=== PATIENT | female | born 1970 | race Asian ===

== ENCOUNTER 2017-09-01 12:40 | Emergency (ER) | payer MEDICAID ==
[2017-09-01] MEDS ORDERED: TORADOL IM ONE (15:00)
[2017-09-01 15:27] LABS: Basophils % (Auto) 1.5 % (0.0-1.8); Eosinophils % (Auto) 1.2 % (0.0-4.3); Hematocrit 28.9 % (30.3-42.9); Hemoglobin 8.8 gm/dl (10.1-14.3); Mean Corpuscular HGB Conc 31 % (30-34); Platelet Count 459 K/mm3 (140-440); Red Blood Count 4.61 M/mm3 (3.65-5.03); Red Cell Distribution Width 19.9 % (13.2-15.2); White Blood Count 5.1 K/mm3 (4.5-11.0)
[2017-09-01 15:30] LABS: Mean Corpuscular Hemoglobin 19 pg (28-32); Mean Corpuscular Volume 63 fl (79-97)
--- NOTE | 2017-09-01 15:34 | Cat Scan Report ---
CT HEAD WITHOUT CONTRAST INDICATION: Headache. COMPARISON: None similar at this institution. FINDINGS: Noncontrast head CT demonstrates normal ventricles and sulci without acute or recent infarct, hemorrhage, mass effect or midline shift. No abnormal extra-axial fluid collections. Posterior fossa structures and basilar cisterns are within normal limits. Symmetric eye globes. Slight leftward nasal septal bowing. Clear paranasal sinuses and mastoid air cells. Intact calvarium. Normal overlying scalp soft tissues. Few missing teeth. CONCLUSION: No acute intracranial CT abnormality, as described. Thank you for the opportunity to participate in this patient's care.
[2017-09-01 15:39] LABS: Alanine Aminotransferase 16 units/L (7-56); Albumin 4.3 g/dL (3.9-5); Alkaline Phosphatase 64 units/L (35-129); Anion Gap 20 mmol/L; BUN/Creatinine Ratio 14; Blood Urea Nitrogen 11 mg/dL (7-17); Calcium 8.9 mg/dL (8.4-10.2); Carbon Dioxide 25 mmol/L (22-30); Glucose 84 mg/dL (65-100); Potassium 3.6 mmol/L (3.6-5.0); Sodium 140 mmol/L (137-145); Total Protein 8.8 g/dL (6.3-8.2)
[2017-09-01] MEDS ORDERED: NORVASC PO ONE (16:38)
[2017-09-01] MEDS ORDERED: HCTZ PO ONE (16:38)
--- NOTE | 2017-09-01 16:49 | Emergency Department Report ---
ED General Adult HPI - General Chief complaint: High BP Stated complaint: ELEVATED BLOOD PRESSURE Time Seen by Provider: 09/01/17 14:59 Source: patient Mode of arrival: Ambulatory Limitations: No Limitations - History of Present Illness Initial comments: Patient is a 46-year-old female with history of hypertension who presents due to elevated blood pressure. Patient states that she went to her primary care doctor's office yesterday and had elevated blood pressure. Patient states that she was told to go to the ER, patient stated that she did not come yesterday for personal reasons. Patient states that she has a headache and has had one for a few days. Patient denies any chest pain or shortness of breath. Patient denies any numbness, tingling, facial weakness or droop. Patient denies any extremity weakness. Patient denies any dizziness. Patient denies any h/o CVA or CAD. Patient has h/o iron deficiency anemia due to heavy menses. Patient states that he PCP gave her a prescription for Norvasc and HCTZ. MD Complaint: ELEVATED BP Onset/Timin -: days(s) Severity scale (0 -10): 0 Consistency: intermittent Improves with: none Worsens with: none Associated Symptoms: denies other symptoms Treatments Prior to Arrival: none - Related Data Previous Rx's Medication Instructions Recorded Last Taken Type Ferrous Sulfate [Iron] 325 mg PO DAILY #30 tablet 09/01/17 Unknown Rx Allergies Allergy/AdvReac Type Severity Reaction Status Date / Time acetaminophen [From Percocet] AdvReac Hives Verified 09/01/17 13:22 oxycodone [From Percocet] AdvReac Hives Verified 09/01/17 13:22 ED Review of Systems ROS: Stated complaint: ELEVATED BLOOD PRESSURE Other details as noted in HPI Comment: All other systems reviewed and negative Constitutional: no symptoms reported. denies: chills, diaphoresis, fever, malaise, weakness Eyes: denies: eye pain, eye discharge, vision change ENT: denies: ear pain, throat pain Respiratory: no symptoms reported. denies: cough, orthopnea Cardiovascular: denies: chest pain, palpitations, dyspnea on exertion, orthopnea , edema, syncope, paroxysmal nocturnal dyspnea Gastrointestinal: denies: abdominal pain, nausea, vomiting, diarrhea, constipation Genitourinary: denies: urgency, dysuria, frequency, hematuria Musculoskeletal: denies: back pain, joint swelling, arthralgia Skin: denies: rash Neurological: headache. denies: weakness, numbness, paresthesias, confusion, abnormal gait, vertigo ED Past Medical Hx - Past Medical History Previous Medical History?: Yes Hx Hypertension: Yes - Surgical History Past Surgical History?: No - Social History Smoking Status: Never Smoker Substance Use Type: Alcohol - Medications Home Medications: Home Medications Medication Instructions Recorded Confirmed Last Taken Type Ferrous Sulfate [Iron] 325 mg PO DAILY #30 tablet 09/01/17 Unknown Rx ED Physical Exam - General Limitations: No Limitations General appearance: alert, in no apparent distress - Head Head exam: Present: atraumatic, normocephalic, normal inspection - Eye Eye exam: Present: normal appearance, PERRL, EOMI Pupils: Present: normal accommodation - Neck Neck exam: Present: normal inspection, full ROM. Absent: tenderness, meningismus - Respiratory Respiratory exam: Present: normal lung sounds bilaterally. Absent: respiratory distress, wheezes, rales, rhonchi, stridor - Cardiovascular Cardiovascular Exam: Present: regular rate, normal rhythm, normal heart sounds - Neurological Exam Neurological exam: Present: alert, oriented X3, normal gait. Absent: abnormal gait, motor sensory deficit - Psychiatric Psychiatric exam: Present: normal affect, normal mood - Skin Skin exam: Present: warm, dry, intact ED Course Vital Signs 09/01/17 13:18 Temperature 98.7 F Pulse Rate 71 Respiratory 16 Rate Blood Pressure 195/96 O2 Sat by Pulse 99 Oximetry ED Medical Decision Making - Lab Data Result diagrams: 09/01/17 15:03 09/01/17 15:03 Lab Results 09/01/17 09/01/17 Range/Units 15:03 15:03 WBC 5.1 (4.5-11.0) K/mm3 RBC 4.61 (3.65-5.03) M/mm3 Hgb 8.8 L (10.1-14.3) gm/dl Hct 28.9 L (30.3-42.9) % MCV 63 L (79-97) fl MCH 19 L (28-32) pg MCHC 31 (30-34) % RDW 19.9 H (13.2-15.2) % Plt Count 459 H (140-440) K/mm3 Lymph % (Auto) 36.5 H (13.4-35.0) % Boundary % (Auto) 10.5 H (0.0-7.3) % Eos % (Auto) 1.2 (0.0-4.3) % Baso % (Auto) 1.5 (0.0-1.8) % Lymph # 1.9 (1.2-5.4) K/mm3 Boundary # 0.5 (0.0-0.8) K/mm3 Eos # 0.1 (0.0-0.4) K/mm3 Baso # 0.1 (0.0-0.1) K/mm3 Seg Neutrophils % 50.3 (40.0-70.0) % Seg Neutrophils # 2.6 (1.8-7.7) K/mm3 Sodium 140 (137-145) mmol/L Potassium 3.6 (3.6-5.0) mmol/L Chloride 99.0 (98-107) mmol/L Carbon Dioxide 25 (22-30) mmol/L Anion Gap 20 mmol/L BUN 11 (7-17) mg/dL Creatinine 0.8 (0.7-1.2) mg/dL Estimated GFR > 60 ml/min BUN/Creatinine Ratio 14 % Glucose 84 (65-100) mg/dL Calcium 8.9 (8.4-10.2) mg/dL Total Bilirubin 0.60 (0.1-1.2) mg/dL AST 25 (5-40) units/L ALT 16 (7-56) units/L Alkaline Phosphatase 64 (35-129) units/L Total Protein 8.8 H (6.3-8.2) g/dL Albumin 4.3 (3.9-5) g/dL Albumin/Globulin Ratio 1.0 % - Radiology Data Radiology results: report reviewed NO ACUTE INTRACRANIAL FINDINGS. - Medical Decision Making Patient was in NAD, patient had no neurological focal deficits, sensory function was intact, motor strength was 5 out of 5 in the upper and lower extremities. Patient had normal gait. EOM was intact. CBC and CMP were normal CT of head WO contrast was unremarkable. Patient was given Norvasc and HCTZ. Patient was precribed ferrous sulfate due to anemia. Patient states that she has h/o anemia due to heavy menses. patient was told to start taking her BP medication tomorrow and to follow up with her PCP. - Differential Diagnosis HTN, MIGRAINE HEADACHE, TENSION HEADACHE Critical care attestation.: If time is entered above; I have spent that time in minutes in the direct care of this critically ill patient, excluding procedure time. ED Disposition Clinical Impression: HTN (hypertension) Qualifiers: Hypertension type: essential hypertension Qualified Code(s): I10 - Essential ( primary) hypertension Headache Qualifiers: Headache type: unspecified Headache chronicity pattern: acute headache Intractability: not intractable Qualified Code(s): R51 - Headache Anemia Qualifiers: Anemia type: unspecified type Qualified Code(s): D64.9 - Anemia, unspecified Disposition: TO HOME OR SELFCARE Is pt being admited?: No Does the pt Need Aspirin: No Condition: Good Instructions: Hypertension (ED) Additional Instructions: take your HTN medications as prescribed by your Primary care doctor, return to the ER for any severe headache, facial numbness, weakness or facial droop. Return if you have any slurred speech or confusion. Return if you have any chest pain or SOB. Prescriptions: Ferrous Sulfate [Iron] 325 mg PO DAILY #30 tablet Referrals: [facility] [Other] - 3-5 Days Time of Disposition: 16:49
[2017-09-01 17:04] VITALS: BP 191/99
== END 2017-09-01 17:04 | disposition home or self-care (01) ==
LOC: ED 12:40
DX: I10 Essential (primary) hypertension (principal); R51 Headache; D64.9 Anemia, unspecified; Z88.6 Allergy status to analgesic agent
CPT/HCPCS: 36415; 70450; 80053; 85025; 96372; 99284; J1885

== ENCOUNTER 2018-11-25 09:33 | Emergency (ER) | payer MEDICAID, OTHER ==
[2018-11-25] MEDS ORDERED: HCTZ PO ONE (10:31)
[2018-11-25] MEDS ORDERED: NORVASC PO ONE (10:31)
--- NOTE | 2018-11-25 10:33 | Emergency Department Report ---
ED General Adult HPI - General Chief complaint: High BP Stated complaint: HIGH BP Time Seen by Provider: 11/25/18 10:17 Source: patient Mode of arrival: Ambulatory Limitations: No Limitations - History of Present Illness Initial comments: a 48-year-old -[place] female who presents for blood pressure medication refills and intermittent sore throat. Patient states she has been off her Norvasc and hydrochlorothiazide. 4-5 months. She also complains of intermittent sore throat which is currently resolved. Patient states she tried to get refills [facility] but was told they do not service [facility]. She is asking for referrals to a PCP who assist patients without insurance. She denies chest pain, shortness of breath, lightheadedness, nausea or vomiting, drooling, difficulty swallowing, myalgias, or fever. Onset/Timin -: month(s) Radiation: non-radiation Severity scale (0 -10): 0 Quality: aching Consistency: now resolved Improves with: none Worsens with: none Associated Symptoms: denies other symptoms Treatments Prior to Arrival: NSAID - Related Data Previous Rx's Medication Instructions Recorded Last Taken Type Ferrous Sulfate [Iron] 325 mg PO DAILY #30 tablet 09/01/17 Unknown Rx Amlodipine Besylate [Norvasc] 10 mg PO DAILY #30 tablet 11/25/18 Unknown Rx hydroCHLOROthiazide [HCTZ] 25 mg PO QDAY #30 tablet 11/25/18 Unknown Rx Allergies Allergy/AdvReac Type Severity Reaction Status Date / Time acetaminophen [From Percocet] AdvReac Hives Verified 09/01/17 13:22 oxycodone [From Percocet] AdvReac Hives Verified 09/01/17 13:22 ED Review of Systems ROS: Stated complaint: HIGH BP Other details as noted in HPI Constitutional: denies: chills, fever ENT: throat pain. denies: ear pain, dental pain, hearing loss, epistaxis, congestion Respiratory: denies: cough, shortness of breath, wheezing Cardiovascular: denies: chest pain, palpitations Gastrointestinal: denies: abdominal pain, nausea, diarrhea Neurological: denies: headache, weakness, paresthesias Psychiatric: denies: anxiety, depression ED Past Medical Hx - Past Medical History Hx Hypertension: Yes - Surgical History Past Surgical History?: No - Social History Smoking Status: Never Smoker Substance Use Type: None - Medications Home Medications: Home Medications Medication Instructions Recorded Confirmed Last Taken Type Ferrous Sulfate [Iron] 325 mg PO DAILY #30 tablet 09/01/17 Unknown Rx Amlodipine Besylate [Norvasc] 10 mg PO DAILY #30 tablet 11/25/18 Unknown Rx hydroCHLOROthiazide [HCTZ] 25 mg PO QDAY #30 tablet 11/25/18 Unknown Rx ED Physical Exam - General Limitations: No Limitations General appearance: alert, in no apparent distress, obese - ENT ENT exam: Present: normal orophraynx, mucous membranes moist, TM's normal bilaterally, normal external ear exam - Neck Neck exam: Present: normal inspection. Absent: lymphadenopathy - Respiratory Respiratory exam: Present: normal lung sounds bilaterally. Absent: respiratory distress - Cardiovascular Cardiovascular Exam: Present: regular rate, normal rhythm. Absent: systolic murmur, diastolic murmur, rubs, gallop - GI/Abdominal GI/Abdominal exam: Present: soft, normal bowel sounds. Absent: distended, tenderness, guarding, rebound, rigid, organomegaly, mass - Neurological Exam Neurological exam: Present: alert, oriented X3 - Psychiatric Psychiatric exam: Present: normal affect, normal mood - Skin Skin exam: Present: warm, dry, intact, normal color. Absent: rash ED Course Vital Signs 11/25/18 11/25/18 11/25/18 09:41 10:57 11:52 Temperature 98.0 F Pulse Rate 79 75 74 Respiratory 20 Rate Blood Pressure 207/86 200/81 Blood Pressure 191/82 [Left] O2 Sat by Pulse 97 Oximetry ED Medical Decision Making - Medical Decision Making This is a 48 y.o. female that presents medication refills and complained of intermittent sore throat. History of HTN. Patient off Norvasc 10 mg by mouth daily and hydrochlorothiazide 25 mg by mouth daily for 4-5 months. Patient is stable and was examined by me. Given Norvasc 25 mg po, HCTZ and mg po once in ER. Will reevaluate blood pressure prior to discharge. Start Norvasc 25 mg by mouth daily and hydrochlorothiazide 25 mg by mouth daily. Reevaluate her vitals prior to discharge, blood pressure trended down. Referral to [facility] for continued care. Discussed plan with patient and agreed to plan. No further questions noted by the patient. Discharged home in stable condition. Follow up with PCP in 1 week. Critical care attestation.: If time is entered above; I have spent that time in minutes in the direct care of this critically ill patient, excluding procedure time. ED Disposition Clinical Impression: Asymptomatic hypertension, Sore throat (viral) Hypertension Qualifiers: Hypertension type: essential hypertension Qualified Code(s): I10 - Essential (primary) hypertension Disposition: TO HOME OR SELFCARE Is pt being admited?: No Does the pt Need Aspirin: No Condition: Stable Instructions: Hypertension (ED), Upper Respiratory Infection (ED) Additional Instructions: Moderate caffeine consumption is acceptable. Begin and maintain aerobic exercise, with a goal of at least 30 minutes of moderate intensity, dynamic aerobic exercise (walking, jogging, cycling, or swimming) 5 days per week to total 150 minutes as tolerated or recommended by a physician. Take medication daily as prescribed. Increase fluid intake and rest. Wash hands frequently. Continue taking Tylenol or ibuprofen to control fever. Follow up with Primary Care Provider in 1 week for continued care of hypertens ion. Return to ER if fever, SOB, or difficulty breathing after 48 hours of supportive care. Prescriptions: Amlodipine Besylate [Norvasc] 10 mg PO DAILY #30 tablet hydroCHLOROthiazide [HCTZ] 25 mg PO QDAY #30 tablet Referrals: [facility] [Outside] - 3-5 Days [facility] [Outside] - 3-[address] [facility] [Outside] - 3-5 Days Forms: Work/School Release Form(ED) Time of Disposition: 12:18
[2018-11-25 12:31] VITALS: BP 186/82
== END 2018-11-25 12:30 | disposition home or self-care (01) ==
LOC: ED 09:33
DX: J02.9 Acute pharyngitis, unspecified (principal); I10 Essential (primary) hypertension
CPT/HCPCS: 99282

== ENCOUNTER 2019-06-02 16:04 | Observation (INO) | payer OTHER ==
--- NOTE | 2019-06-02 16:40 | Event Note ---
ED Screening Note ED Screening Note: pt presents with generalized weakness and fatigue for several months denies any pain LNMP end of April PMHx anemia and HTN has not taken her iron pill or blood pressure medication in 4 months never had to have a blood transfusion in the past This initial assessment/diagnostic orders/clinical plan/treatment(s) is/are subject to change based on patients health status, clinical progression and re- assessment by fellow clinical providers in the ED. Further treatment and workup at subsequent clinical providers discretion. Patient/guardian urged not to elope from the ED as their condition may be serious if not clinically assessed and managed. Initial orders include: labs, UA, urine preg
[2019-06-02 17:16] LABS: Basophils % (Auto) 0.6 % (0.0-1.8); Eosinophils % (Auto) 0.3 % (0.0-4.3); Hematocrit 20.6 % (30.3-42.9); Lymphocytes # (Auto) 1.3 K/mm3 (1.2-5.4); Mean Corpuscular HGB Conc 29 % (30-34); Monocytes # (Auto) 0.5 K/mm3 (0.0-0.8); Monocytes % (Auto) 12.2 % (0.0-7.3); Platelet Count 316 K/mm3 (140-440); Red Blood Count 3.72 M/mm3 (3.65-5.03)
[2019-06-02 17:17] LABS: Hemoglobin 5.9 gm/dl (10.1-14.3)
[2019-06-02 17:18] LABS: Mean Corpuscular Volume 55 fl (79-97); Red Cell Distribution Width 20.7 % (13.2-15.2)
[2019-06-02 17:25] LABS: Alanine Aminotransferase 7 units/L (7-56); Albumin 4.1 g/dL (3.9-5); BUN/Creatinine Ratio 9; Blood Urea Nitrogen 8 mg/dL (7-17); Calcium 8.9 mg/dL (8.4-10.2); Hemolysis Index 0
[2019-06-02 17:36] LABS: HCG Qualitative,Urine Negative (Negative)
[2019-06-02 17:39] LABS: Bacteria,Urine 4+ /HPF (Negative); Bilirubin,Urine NEG (Negative); Blood,Urine NEG (Negative); Color,Urine Amber (Yellow); Mucus,Urine 3+ /HPF; Urobilinogen,Urine < 2.0 mg/dL (<2.0)
[2019-06-02] MEDS ORDERED: NACL 0.9% 500 ML 500 ML IV ONE ×2 (17:49→22:07)
[2019-06-02] MEDS ORDERED: APRESOLINE IV ONE ×2 (17:49→19:24)
[2019-06-02] MEDS ORDERED: ROCEPHIN/NS 1 GM/50 ML 1 GM/50 ML BAG IV ONE (18:15)
--- NOTE | 2019-06-02 18:24 | Emergency Department Report ---
HPI - General Chief Complaint: Weakness Time Seen by Provider: 06/02/19 16:38 - HPI HPI: 48-year-old -[place] female presents to the emergency department from home with complaint of some generalized weakness and fatigue has been going on for the past few months. The patient says that she knows that she has a history of anemia but has never required transfusions. She also has a history of hypertension and has not taken her Norvasc or hydrochlorothiazide in the last month. 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 When asked if the patient is bleeding, the patient denies any current bleeding but says that she has heavy menstrual cycles that are most likely the cause of her anemia. She has known fibroids. She says that her menstrual cycle last for about 6 days with 3-4 of them being very heavy leading. She is due for her next menstrual cycle at the end of the month. ED Past Medical Hx - Past Medical History Previous Medical History?: Yes Hx Hypertension: Yes Additional medical history: anemia - Social History Smoking Status: Never Smoker Substance Use Type: None - Medications Home Medications: Home Medications Medication Instructions Recorded Confirmed Last Taken Type Amoxicillin/Potassium Clav 1 each PO BID #6 tablet 06/03/19 Unknown Rx [Augmentin 875-125 Tablet] Ferrous Sulfate [Feosol 325 MG tab] 325 mg PO BID #60 tablet 06/03/19 Unknown Rx amLODIPine [Norvasc] 10 mg PO DAILY #30 tablet 06/03/19 Unknown Rx hydroCHLOROthiazide [HCTZ] 25 mg PO QDAY #30 tablet 06/03/19 Unknown Rx ED Review of Systems ROS: Stated complaint: VERY FATIQUE/WEAK Other details as noted in HPI Comment: All other systems reviewed and negative Constitutional: weakness, other (fatigue). denies: chills, fever Eyes: denies: eye pain, vision change ENT: denies: ear pain, throat pain Respiratory: denies: cough, wheezing Cardiovascular: denies: chest pain, palpitations Gastrointestinal: denies: abdominal pain, vomiting Genitourinary: abnormal menses. denies: dysuria, frequency Musculoskeletal: denies: back pain, arthralgia Skin: denies: rash, lesions Neurological: denies: headache, numbness Physical Exam - Physical Exam Vital Signs: Vital Signs 06/02/19 16:39 Temperature 98.4 F Pulse Rate 91 H Respiratory 18 Rate Blood Pressure 186/102 [Right] O2 Sat by Pulse 100 Oximetry Physical Exam: GENERAL: The patient is well-developed well-nourished. HENT: Normocephalic. Atraumatic. Patient has moist mucous membranes. EYES: Extraocular motions are intact. Pupils equal reactive to light bilaterally. Pale conjunctiva NECK: Supple. Trachea is midline. CHEST/LUNGS: Clear to auscultation. There is no respiratory distress noted. HEART/CARDIOVASCULAR: Regular. There is no tachycardia. There is no murmur. ABDOMEN: Abdomen is soft, nontender. Patient has normal bowel sounds. There is no abdominal distention. SKIN: Skin is warm and dry. NEURO: The patient is awake, alert, and oriented. The patient is cooperative. The patient has no focal neurologic deficits. The patient has normal speech. MUSCULOSKELETAL: There is no tenderness or deformity. There is no evidence of acute injury. ED Course Vital Signs 06/02/19 16:39 Temperature 98.4 F Pulse Rate 91 H Respiratory 18 Rate Blood Pressure 186/102 [Right] O2 Sat by Pulse 100 Oximetry ED Medical Decision Making - Lab Data Result diagrams: 06/03/19 09:06 06/03/19 09:06 - Medical Decision Making This patient presents to the emergency department with the feelings of some generalized weakness and fatigue. Patient has a history of anemia but has never required a transfusion. Hemoglobin today was 5.9. This is most likely the etiology of her symptoms. The patient has history of heavy menstrual cycles but is not currently having any bleeding. 2 units of packed blood cells and ordered for transfusion. Since it is a DIGITAL PROJECT MANAGER problem causing the anemia, I have contacted the DIGITAL PROJECT MANAGER service on-call and they have graciously accepted the patient to their service. The patient does present with some elevated blood pressure. She has a history of hypertension and medication noncompliance. However she denies any headache, chest pain, shortness of breath. She has been given a few doses of antihypertensive medication to try to get the blood pressure down, as she will receive a transfusion. In reviewing the patient's hospital course, it appears that the patient end up being admitted to the hospitalist service with an WOOD PATTERNMAKER APPRENTICE consult instead of the other way around secondary to her hypertension. - Differential Diagnosis menorrhagia, fibroids, malignancy Critical Care Time: Yes Critical care time in (mins) excluding proc time.: 35 Critical care attestation.: If time is entered above; I have spent that time in minutes in the direct care of this critically ill patient, excluding procedure time. Critical care time was spent on this patient and doing her initial evaluation, multiple re- evaluations, ordering an interpretation of labs and imaging, ordering of blood for transfusion Critical Care Time: 35 minutes ED Disposition Clinical Impression: Menorrhagia with regular cycle, Microcytic anemia, Symptomatic anemia, Hypertension Disposition: DC-09 OP ADMIT IP TO THIS HOSP Is pt being admited?: Yes Condition: Fair
[2019-06-02] MEDS ORDERED: NORMODYNE IV ONE ×2 (19:44→20:02)
[2019-06-02] MEDS ORDERED: MORPHINE IV ONE (19:53)
[2019-06-02] MEDS ORDERED: MORPHINE ONE (20:01)
--- NOTE | 2019-06-02 21:09 | Consultation ---
Medications and Allergies Allergies Allergy/AdvReac Type Severity Reaction Status Date / Time acetaminophen [From Percocet] AdvReac Hives Verified 06/02/19 16:05 oxycodone [From Percocet] AdvReac Hives Verified 06/02/19 16:05 Home Medications Medication Instructions Recorded Confirmed Last Taken Type Ferrous Sulfate [Iron 325 MG] 325 mg PO DAILY #30 tablet 09/01/17 Unknown Rx Amlodipine Besylate [Norvasc] 10 mg PO DAILY #30 tablet 11/25/18 Unknown Rx hydroCHLOROthiazide [HCTZ] 25 mg PO QDAY #30 tablet 11/25/18 Unknown Rx Exam - Constitutional Vitals: Temp Pulse Resp BP Pulse Ox 98.4 F 82 9 L 179/82 100 06/02/19 16:39 06/02/19 20:02 06/02/19 19:15 06/02/19 20:02 06/02/19 19:15 Results - Labs CBC & Chem 7: 06/02/19 16:54 06/02/19 16:54 Labs: Abnormal lab results 06/02/19 06/02/19 06/02/19 Range/Units 16:54 16:54 17:06 WBC 3.7 L (4.5-11.0) K/mm3 Hgb 5.9 L* (10.1-14.3) gm/dl Hct 20.6 L (30.3-42.9) % MCV 55 L (79-97) fl MCH 16 L (28-32) pg MCHC 29 L (30-34) % RDW 20.7 H (13.2-15.2) % [place] % (Auto) 12.2 H (0.0-7.3) % Chloride 107.3 H (98-107) mmol/L Total Protein 8.9 H (6.3-8.2) g/dL Urine WBC (Auto) 38.0 H (0.0-6.0) /HPF U Epithel Cells (Auto) 20.0 H (0-13.0) /HPF Crossmatch 06/02/19 Range/Units 18:10 WBC (4.5-11.0) K/mm3 Hgb (10.1-14.3) gm/dl Hct (30.3-42.9) % MCV (79-97) fl MCH (28-32) pg MCHC (30-34) % RDW (13.2-15.2) % [place] % (Auto) (0.0-7.3) % Chloride (98-107) mmol/L Total Protein (6.3-8.2) g/dL Urine WBC (Auto) (0.0-6.0) /HPF U Epithel Cells (Auto) (0-13.0) /HPF Crossmatch See Detail
[2019-06-02] MEDS ORDERED: APRESOLINE IV PRN (21:10)
[2019-06-02] MEDS ORDERED: ZOFRAN IV PRN ×2 (21:29→22:01)
[2019-06-02] MEDS ORDERED: SODIUM CHLORIDE FLUSH SYRINGE 10 ML IV PRN ×2 (21:29→22:01)
[2019-06-02] MEDS ORDERED: NACL 0.9% 500 ML 500 ML ONE (21:56)
--- NOTE | 2019-06-02 21:59 | History and Physical Report ---
History of Present Illness Date of admission: 06/02/19 18:24 Chief complaint: Im bleeding real heavy History of present illness: 48 YO Female with HTN, Obesity, Menorrhagia, Uterine Fibroids, Anemia presents to ED for evaluation. Pt states that she has experienced generalized weakness, early fatigue, decreased exercise tolerance. Pt reports that her menstrual cycle is regular and lasts for about 6 days and she uses multiple pads for her bleeding. Pt transported to [facility] via private vehicle. Pt seen and evaluated in ED and found to have symptomatic anemia, UTI, Hypertensive Urgency. Pt restarted on prehospital antihypertensive therapy with improvement in SBP. Pt transfused PRBC and admitted to medical floor. SERVICE DELIVERY MANAGEMENT CONSULTANT service consulted by ED physician. Pt denies fever, chills, CP, Palpitations, NVD, Abdominal pain, unintentional weight loss, night seats, productive cough, skin rash, or recent ill contacts. No prior admission for review. All listed medication reconciled at time of adm ission. Past History Past Medical History: anemia, hypertension, other (Obesity) Past Surgical History: Other (breast surgery) Social history: single. denies: smoking, alcohol abuse, prescription drug abuse Family history: hypertension Medications and Allergies Allergies Allergy/AdvReac Type Severity Reaction Status Date / Time acetaminophen [From Percocet] AdvReac Hives Verified 06/02/19 16:05 oxycodone [From Percocet] AdvReac Hives Verified 06/02/19 16:05 Home Medications Medication Instructions Recorded Confirmed Last Taken Type No Known Home Medications [No 06/02/19 06/02/19 Unknown History Reported Home Medications] Active Meds: Active Medications Hydralazine HCl (Apresoline) 10 mg IV Q6H PRN PRN Reason: Hypertension Ondansetron HCl (Zofran) 4 mg IV Q8H PRN PRN Reason: Nausea And Vomiting Sodium Chloride (Sodium Chloride Flush Syringe 10 Ml) 10 ml IV PRN PRN PRN Reason: LINE FLUSH Review of Systems Constitutional: fatigue, weakness, no weight loss, no weight gain, no fever Ears, nose, mouth and throat: no ear pain, no ear discharge, no tinnitis, no decreased hearing, no nose pain Breasts: no change in shape, no swelling, no mass Cardiovascular: no chest pain, no orthopnea Respiratory: no cough, no cough with sputum, no excessive sputum, no hemoptysis, no shortness of breath, no dyspnea on exertion Gastrointestinal: no abdominal pain, no nausea, no vomiting, no constipation, no change in bowel habits, no hematemesis Genitourinary Female: menorrhagia, no pelvic pain, no flank pain, no dysuria, no urinary frequency, no urgency, no stress incontinence Rectal: no pain, no incontinence, no bleeding Musculoskeletal: no neck stiffness, no neck pain, no shooting arm pain, no arm numbness/tingling, no low back pain, no shooting leg pain Integumentary: no rash, no pruritis, no redness, no sores, no wounds Neurological: no head injury, no transient paralysis, no paralysis, no weakness, no parathesias, no numbness, no seizures, no tremors, no convulsions, no change in mentation Psychiatric: no anxiety, no memory loss, no change in sleep habits, no paranoia, no hopelessness, no difficulties concentrating Endocrine: no cold intolerance, no heat intolerance, no polyphagia, no excessive thirst, no polydipsia, no nocturia, no deepening of the voice, no palpatations, no low blood sugars Hematologic/Lymphatic: no easy bruising, no easy bleeding, no lymphadenopathy Allergic/Immunologic: no urticaria, no wheezing, no persistent infections, no anaphylaxis, no angioedema, no gluten intolerance, no seasonal allergies Exam - Constitutional Vitals: Temp Pulse Resp BP Pulse Ox 98.4 F 82 9 L 179/82 100 06/02/19 16:39 06/02/19 20:02 06/02/19 19:15 06/02/19 20:02 06/02/19 19:15 General appearance: Present: mild distress - EENT Eyes: Present: PERRL ENT: hearing intact, clear oral mucosa - Neck Neck: Present: supple, normal ROM - Respiratory Respiratory effort: normal Respiratory: bilateral: CTA - Cardiovascular Heart Sounds: Present: S1 & S2. Absent: rub, click - Extremities Extremities: pulses symmetrical, No edema Peripheral Pulses: within normal limits - Abdominal General gastrointestinal: Present: soft, non-tender, non-distended, normal bowel sounds Female genitourinary: Present: normal - Integumentary Integumentary: Present: clear, warm, dry - Musculoskeletal Musculoskeletal: gait normal, strength equal bilaterally - Psychiatric Psychiatric: appropriate mood/affect, intact judgment & insight - Neurologic Neurologic: CNII-XII intact, moves all extremities Results - Labs CBC & Chem 7: 06/02/19 16:54 06/02/19 16:54 Labs: Abnormal lab results 06/02/19 06/02/19 06/02/19 Range/Units 16:54 16:54 17:06 WBC 3.7 L (4.5-11.0) K/mm3 Hgb 5.9 L* (10.1-14.3) gm/dl Hct 20.6 L (30.3-42.9) % MCV 55 L (79-97) fl MCH 16 L (28-32) pg MCHC 29 L (30-34) % RDW 20.7 H (13.2-15.2) % [place] % (Auto) 12.2 H (0.0-7.3) % Chloride 107.3 H (98-107) mmol/L Total Protein 8.9 H (6.3-8.2) g/dL Urine WBC (Auto) 38.0 H (0.0-6.0) /HPF U Epithel Cells (Auto) 20.0 H (0-13.0) /HPF Crossmatch 06/02/19 Range/Units 18:10 WBC (4.5-11.0) K/mm3 Hgb (10.1-14.3) gm/dl Hct (30.3-42.9) % MCV (79-97) fl MCH (28-32) pg MCHC (30-34) % RDW (13.2-15.2) % [place] % (Auto) (0.0-7.3) % Chloride (98-107) mmol/L Total Protein (6.3-8.2) g/dL Urine WBC (Auto) (0.0-6.0) /HPF U Epithel Cells (Auto) (0-13.0) /HPF Crossmatch See Detail Assessment and Plan - Patient Problems (1) UTI (urinary tract infection) Current Visit: Yes Status: Acute Qualifiers: Encounter type: initial encounter Plan to address problem: IV antibiotic therapy, urinalysis, CBC, CMP, supportive care. (2) Symptomatic anemia Current Visit: Yes Status: Acute Plan to address problem: PRBC Transfusion, Iron replacement therapy, bowel regimen, SERVICE DELIVERY MANAGEMENT CONSULTANT F/U care (3) Hypertensive urgency, malignant Current Visit: Yes Status: Acute Plan to address problem: Monitor BP q shift, continue prehospital antihypertensive therapy, supportive care. IV hydralazine prn (4) DVT prophylaxis Current Visit: Yes Status: Acute Plan to address problem: SCD to BLE while in bed, Pt ambulatory
[2019-06-02] MEDS ORDERED: PROVENTIL IH PRN (22:01)
[2019-06-02] MEDS ORDERED: TYLENOL PO PRN (22:01)
[2019-06-02] MEDS ORDERED: SENOKOT S PO PRN (22:04)
[2019-06-02] MEDS ORDERED: FIORICET PO PRN (22:06)
--- NOTE | 2019-06-02 23:07 | Consultation ---
History of Present Illness Consult date: 06/02/19 Reason for consult: menorrhagia, pelvic mass (fibroids) History of present illness: This is a 48 year-old female, who presents with fatigue, weakness, SOB. She was noted to have a hemoglobin of 5.9 with a history of menorrhagia. States she started having heavy menstrual bleeding ~ 1-2 years ago. Heavy bleeding occurs 6/12 months. She typical bleeds heavy 3/6days. She usually saturates ~5-6pads a day. She was diagnosed with fibroids and anemia by her PCP and instructed to start FeSO4. LMP 05/20/2019, no bleeding now. Past History Past Medical History: hypertension Past Surgical History: other (BTL; excision of hidradenitis breast) [facility] History: abnormal PAP smear, fibroids, gonorrhea, hepatitis B, hepatitis C, herpes, HIV, syphilis, trichomonas. denies: chlamydia - Obstetrical History : 3 Para: 4 Number of Living Children: 4 ( x4) Medications and Allergies Allergies Allergy/AdvReac Type Severity Reaction Status Date / Time acetaminophen [From Percocet] AdvReac Hives Verified 06/02/19 16:05 oxycodone [From Percocet] AdvReac Hives Verified 06/02/19 16:05 Home Medications Medication Instructions Recorded Confirmed Last Taken Type No Known Home Medications [No 06/02/19 06/02/19 Unknown History Reported Home Medications] Active Meds: Active Medications Acetaminophen (Tylenol) 650 mg PO Q4H PRN PRN Reason: Pain MILD(1-3)/Fever >100.5/[place] Acetaminophen/Butalbital/Caffeine (Fioricet) 1 tab PO Q4H PRN PRN Reason: Headache Albuterol (Proventil) 2.5 mg IH Q4HRT PRN PRN Reason: Shortness Of Breath Amlodipine Besylate (Norvasc) 10 mg PO DAILY TEE Ferrous Sulfate (Feosol) 325 mg PO BID TEE Hydralazine HCl (Apresoline) 10 mg IV Q6H PRN PRN Reason: Hypertension Hydrochlorothiazide (Hctz) 25 mg PO QDAY TEE Ceftriaxone Sodium (Rocephin/Ns 1 Gm/50 Ml) 1 gm in 50 mls @ 100 mls/hr IV Q24HR TEE; Protocol Ondansetron HCl (Zofran) 4 mg IV Q8H PRN PRN Reason: Nausea And Vomiting Ondansetron HCl (Zofran) 4 mg IV Q8H PRN PRN Reason: Nausea And Vomiting Senna/Docusate Sodium (Senokot S) 2 tab PO Q12H PRN PRN Reason: Laxative Effect Sodium Chloride (Sodium Chloride Flush Syringe 10 Ml) 10 ml IV PRN PRN PRN Reason: LINE FLUSH Sodium Chloride (Sodium Chloride Flush Syringe 10 Ml) 10 ml IV BID TEE Sodium Chloride (Sodium Chloride Flush Syringe 10 Ml) 10 ml IV PRN PRN PRN Reason: LINE FLUSH Review of Systems All systems: negative Constitutional: fatigue, weakness - Vital Signs Vital signs: Vital Signs Temp Pulse Resp BP Pulse Ox 98.4 F 91 H 18 186/102 100 06/02/19 16:39 06/02/19 16:39 06/02/19 16:39 06/02/19 16:39 06/02/19 16:39 Temp Pulse Resp BP Pulse Ox 98.2 F 70 18 182/81 100 06/02/19 22:19 06/02/19 22:19 06/02/19 22:19 06/02/19 22:19 06/02/19 22:19 - Physical Exam Abdomen: Positive: other (mass (R) pelvis to ~2cm above umbilicus that corresponds to what she says is a fibroid) Results Result Diagrams: 06/02/19 16:54 06/02/19 16:54 Abnormal lab results 06/02/19 06/02/19 06/02/19 Range/Units 16:54 16:54 17:06 WBC 3.7 L (4.5-11.0) K/mm3 Hgb 5.9 L* (10.1-14.3) gm/dl Hct 20.6 L (30.3-42.9) % MCV 55 L (79-97) fl MCH 16 L (28-32) pg MCHC 29 L (30-34) % RDW 20.7 H (13.2-15.2) % [place] % (Auto) 12.2 H (0.0-7.3) % Chloride 107.3 H (98-107) mmol/L Total Protein 8.9 H (6.3-8.2) g/dL Urine WBC (Auto) 38.0 H (0.0-6.0) /HPF U Epithel Cells (Auto) 20.0 H (0-13.0) /HPF Crossmatch 06/02/19 Range/Units 18:10 WBC (4.5-11.0) K/mm3 Hgb (10.1-14.3) gm/dl Hct (30.3-42.9) % MCV (79-97) fl MCH (28-32) pg MCHC (30-34) % RDW (13.2-15.2) % [place] % (Auto) (0.0-7.3) % Chloride (98-107) mmol/L Total Protein (6.3-8.2) g/dL Urine WBC (Auto) (0.0-6.0) /HPF U Epithel Cells (Auto) (0-13.0) /HPF Crossmatch See Detail All other labs normal. Assessment and Plan - Patient Problems (1) Hypertension Current Visit: Yes Status: Acute (2) Menorrhagia with regular cycle Current Visit: Yes Status: Acute Plan to address problem: No bleeding at this time. She is encouraged to follow up with a [facility] as an outpatient to obtain a complete evaluation of the menorrhagia and fibroid. Agree with transfusion. Hold control pills for menstrual regulation d/t uncontr olled blood pressures. May consider Tranexamic acid if bleeding recurs until she completes her evaluation. Will sign off at this time since no active bleeding, please call if bleeding occurs. (3) Fibroids Current Visit: Yes Status: Acute (4) Microcytic anemia Current Visit: Yes Status: Acute
[2019-06-02] MEDS ORDERED: APRESOLINE ONE (23:21)
[2019-06-02] MEDS ORDERED: FIORICET ONE (23:21)
[2019-06-03] MEDS ORDERED: APRESOLINE IV PRN (01:31)
[2019-06-03] MEDS ORDERED: NORVASC PO SCH (10:00)
[2019-06-03] MEDS ORDERED: FEOSOL PO SCH (10:00)
[2019-06-03] MEDS ORDERED: SODIUM CHLORIDE FLUSH SYRINGE 10 ML IV SCH (10:00)
[2019-06-03] MEDS ORDERED: ROCEPHIN/NS 1 GM/50 ML 1 GM/50 ML BAG IV SCH (10:00)
[2019-06-03] MEDS ORDERED: HCTZ PO SCH (10:00)
[2019-06-03 10:24] LABS: BUN/Creatinine Ratio 9; Blood Urea Nitrogen 8 mg/dL (7-17); Calcium 9.8 mg/dL (8.4-10.2); Hemolysis Index 0
[2019-06-03 10:26] LABS: Hematocrit 32.6 % (30.3-42.9); Hemoglobin 10.2 gm/dl (10.1-14.3); Mean Corpuscular HGB Conc 31 % (30-34); Platelet Count 287 K/mm3 (140-440); Red Blood Count 5.19 M/mm3 (3.65-5.03)
[2019-06-03 10:50] LABS: Mean Corpuscular Volume 63 fl (79-97); Red Cell Distribution Width 30.4 % (13.2-15.2)
[2019-06-03 12:20] LABS: Anisocytosis 2+; Basophils % (Manual) 0 % (0.0-1.8); Eosinophils % (Manual) 0 % (0.0-4.3); Hypochromasia 2+; Platelet Estimate Consistent w Auto; Target Cells Few; Total Cells Counted 100
[2019-06-03 13:06] VITALS: BP 147/66
--- NOTE | 2019-06-03 15:39 | Discharge Summary ---
Providers - Providers Date of Admission: 06/02/19 18:24 Attending physician: ROSS AMADOR MD 06/02/19 21:29 Consult to Physician [CONS] Stat Comment: Consulting Provider: JAYE MENDOZA Physician Instructions: Reason For Exam: menorrhagia [facility] care physician: [facility] Hospitalization Condition: Fair Hospital course: 48 YO Female with HTN, Obesity, Menorrhagia, Uterine Fibroids, Anemia who presents with generalized weakness, heavy menstrual cycle that lasted 6 days. Acute blood loss anemia due to menorrhagia Patient has been transfused, with adequate rise in hemoglobin Iron deficiency, she was treated with iron supplements Urinary tract infection, rx w antibiotics menorrhagia with regular cycle Likely a complication of fibroids, per [employer] hold control pills due to uncontrolled htn, outpatient follow-up Disposition: DC- TO HOME OR SELFCARE Time spent for discharge: 35 minutes Core Measure Documentation - Palliative Care Palliative Care/ Comfort Measures: Not Applicable - Core Measures Any of the following diagnoses?: none Exam - Constitutional Vitals: Temp Pulse Resp BP Pulse Ox 99.0 F 77 16 147/66 98 06/03/19 11:28 06/03/19 11:28 06/03/19 11:28 06/03/19 11:28 06/03/19 11:28 General appearance: Present: no acute distress, well-nourished - EENT Eyes: Present: PERRL ENT: hearing intact, clear oral mucosa - Neck Neck: Present: supple, normal ROM - Respiratory Respiratory effort: normal Respiratory: bilateral: CTA - Cardiovascular Heart Sounds: Present: S1 & S2. Absent: rub, click - Extremities Extremities: pulses symmetrical, No edema Peripheral Pulses: within normal limits - Abdominal General gastrointestinal: Present: soft, non-tender, non-distended, normal bowel sounds Female genitourinary: Present: normal - Integumentary Integumentary: Present: clear, warm, dry - Musculoskeletal Musculoskeletal: gait normal, strength equal bilaterally - Psychiatric Psychiatric: appropriate mood/affect, intact judgment & insight - Neurologic Neurologic: CNII-XII intact, moves all extremities Plan Follow up with: JAYE MENDOZA MD [Staff Physician] - 7 Days WIMBLEDON RENATO BALL MD [Primary Care Provider] - 3-5 Days Prescriptions: Amoxicillin/Potassium Clav [Augmentin 875-125 Tablet] 1 each PO BID #6 tablet Ferrous Sulfate [Feosol 325 MG tab] 325 mg PO BID #60 tablet hydroCHLOROthiazide [HCTZ] 25 mg PO QDAY #30 tablet amLODIPine [Norvasc] 10 mg PO DAILY #30 tablet
--- NOTE | 2019-06-03 18:35 | Event Note ---
Date: 06/03/19 Received a notification thru [facility] stating "Patient planning suicide" Spoke with RN who states she was not aware of any suicidal ideations. Patient is discharged however is still in the facilities waiting for her ride home. Instructed to discuss this w/ patient and hospitalist prior to allowing the patient to go home.
== END 2019-06-03 18:31 | disposition home or self-care (01) ==
LOC: ED 16:04 → OB 18:24 → 3A 23:04
PROVIDERS: ADMIT Obstetrics & Gynecology; ATTEND Internal Medicine
DX: N39.0 Urinary tract infection, site not specified (principal); I16.0 Hypertensive urgency; E66.9 Obesity, unspecified; B19.20 Unspecified viral hepatitis C without hepatic coma; B20 Human immunodeficiency virus [HIV] disease; I10 Essential (primary) hypertension; N92.0 Excessive and frequent menstruation with regular cycle; D21.9 Benign neoplasm of connective and other soft tissue, unspecified; D50.9 Iron deficiency anemia, unspecified; Z98.890 Other specified postprocedural states
CPT/HCPCS: 36415; 36430; 80048; 80053; 81001; 81025; 83735; 84443; 85007; 85025; 86850; 86900; 86901; 86920; 87076; 87086; 87116; 87186; 93005; 93010; 96365; 96366; 96375; 96376; 99291; G0378; J0360; J0696; J2270; J2405; J7040; P9016

== ENCOUNTER 2019-07-16 13:59 | Emergency (ER) | payer SELFPAY ==
--- NOTE | 2019-07-16 14:05 | Event Note ---
ED Screening Note Date of service: 07/16/19 Time: 14:04 ED Screening Note: 48 y/o female c/o facial swelling since yesterday. It was noted that patient has elevated Blood pressure. Sore throat. This initial assessment/diagnostic orders/clinical plan/treatment(s) is/are subject to change based on patients health status, clinical progression and re- assessment by fellow clinical providers in the ED. Further treatment and workup at subsequent clinical providers discretion. Patient/guardian urged not to elope from the ED as their condition may be serious if not clinically assessed and managed. Initial orders include:
[2019-07-16] MEDS ORDERED: CLEOCIN PO ONE (16:10)
[2019-07-16] MEDS ORDERED: IBUPROFEN PO ONE (16:11)
--- NOTE | 2019-07-16 16:20 | Emergency Department Report ---
<JAKI BUCKLEY - Last Filed: 07/16/19 16:12> ED General Adult HPI - General Chief complaint: Dental/Oral Stated complaint: FACE SWOLLEN/PAINFUL Time Seen by Provider: 07/16/19 14:04 Source: patient Mode of arrival: Ambulatory Limitations: No Limitations - History of Present Illness Initial comments: This is a 48-year-old female with history of hypertension currently controlled with medication. Patient states she took her blood pressure medication daily and is followed by primary care physician. Patient presented today complaining of left-sided dental pain and swelling that started yesterday. Patient denies fevers chills/nausea vomiting trauma to the face. Patient also complaining of sore throat for the past day. Patient denies any fever, chest pain, headache, blurred vision - Related Data Previous Rx's Medication Instructions Recorded Last Taken Type Amoxicillin/Potassium Clav 1 each PO BID #6 tablet 06/03/19 Unknown Rx [Augmentin 875-125 Tablet] Ferrous Sulfate [Feosol 325 MG tab] 325 mg PO BID #60 tablet 06/03/19 Unknown Rx amLODIPine [Norvasc] 10 mg PO DAILY #30 tablet 06/03/19 Unknown Rx hydroCHLOROthiazide [HCTZ] 25 mg PO QDAY #30 tablet 06/03/19 Unknown Rx Clindamycin [Clindamycin CAP] 300 mg PO TID #21 capsule 07/16/19 Unknown Rx Ibuprofen [Motrin 800 MG tab] 800 mg PO TID #20 tablet 07/16/19 Unknown Rx Allergies Allergy/AdvReac Type Severity Reaction Status Date / Time acetaminophen [From Percocet] AdvReac Hives Verified 06/02/19 16:05 oxycodone [From Percocet] AdvReac Hives Verified 06/02/19 16:05 ED Review of Systems Comment: All other systems reviewed and negative ED Past Medical Hx - Past Medical History Previous Medical History?: Yes Hx Hypertension: Yes Additional medical history: anemia - Surgical History Past Surgical History?: No - Social History Smoking Status: Never Smoker Substance Use Type: None - Medications Home Medications: Home Medications Medication Instructions Recorded Confirmed Last Taken Type Amoxicillin/Potassium Clav 1 each PO BID #6 tablet 06/03/19 Unknown Rx [Augmentin 875-125 Tablet] Ferrous Sulfate [Feosol 325 MG tab] 325 mg PO BID #60 tablet 06/03/19 Unknown Rx amLODIPine [Norvasc] 10 mg PO DAILY #30 tablet 06/03/19 Unknown Rx hydroCHLOROthiazide [HCTZ] 25 mg PO QDAY #30 tablet 06/03/19 Unknown Rx Clindamycin [Clindamycin CAP] 300 mg PO TID #21 capsule 07/16/19 Unknown Rx Ibuprofen [Motrin 800 MG tab] 800 mg PO TID #20 tablet 07/16/19 Unknown Rx ED Physical Exam - General Limitations: No Limitations General appearance: alert, in no apparent distress - Head Head exam: Present: atraumatic, normocephalic - Eye Eye exam: Present: normal appearance - ENT ENT exam: Present: mucous membranes moist - Neck Neck exam: Present: normal inspection - Respiratory Respiratory exam: Present: normal lung sounds bilaterally. Absent: respiratory distress - Cardiovascular Cardiovascular Exam: Present: regular rate, normal rhythm. Absent: systolic murmur, diastolic murmur, rubs, gallop - GI/Abdominal GI/Abdominal exam: Present: soft, normal bowel sounds - Extremities Exam Extremities exam: Present: normal inspection - Back Exam Back exam: Present: normal inspection - Neurological Exam Neurological exam: Present: alert, oriented X3 - Psychiatric Psychiatric exam: Present: normal affect, normal mood - Skin Skin exam: Present: warm, dry, intact, normal color. Absent: rash ED Medical Decision Making - Medical Decision Making 48-year-old female who presents with left-sided Facial pain secondary to odontogenic caries ED course: Patient received a dose of clindamycin and Motrin in the ED Pt has no evidence of acute impending airway compromise. At this point, patient will be discharged home on some antibiotics and pain trial, she will do well with an outpatient course of antibiotics. Follow up with the Dental Clinic as referred Vital signs are normal patient is in no acute distress. Pt had an effect uneventful ED stay ED Disposition Clinical Impression: Pain due to dental caries Disposition: DC-01 TO HOME OR SELFCARE Is pt being admited?: No Does the pt Need Aspirin: No Condition: Stable Instructions: Dental Caries (ED), Toothache (ED) Additional Instructions: eMake sure to follow up with the dentist as discussed. Take all your medications as you've been prescribed. If you have any worsening symptoms or develop new symptoms please return to ED immediately. Prescriptions: Clindamycin [Clindamycin CAP] 300 mg PO TID #21 capsule Ibuprofen [Motrin 800 MG tab] 800 mg PO TID #20 tablet Referrals: PRIMARY CARE, [Primary Care Provider] - 3-5 Days [facility] [Outside] - 3-5 Days [facility] [Outside] - 3-5 Days Forms: Accompanied Note, Work/School Release Form(ED) Time of Disposition: 16:56 <FCO BURNETT P - Last Filed: 07/17/19 17:41> ED Review of Systems ROS: Stated complaint: FACE SWOLLEN/PAINFUL Other details as noted in HPI ED Course Vital Signs 07/16/19 07/16/19 14:05 17:09 Temperature 98.2 F Pulse Rate 72 63 Respiratory 16 20 Rate Blood Pressure 207/103 Blood Pressure 175/94 [Left] O2 Sat by Pulse 97 Oximetry Critical care attestation.: If time is entered above; I have spent that time in minutes in the direct care of this critically ill patient, excluding procedure time. ED Disposition Is pt being admited?: No
[2019-07-16 17:10] VITALS: BP 175/94
== END 2019-07-16 17:15 | disposition home or self-care (01) ==
LOC: ED 13:59
DX: K02.9 Dental caries, unspecified (principal); Z88.5 Allergy status to narcotic agent; Z88.6 Allergy status to analgesic agent; I10 Essential (primary) hypertension
CPT/HCPCS: 87116; 87430

== ENCOUNTER 2019-12-04 16:13 | Emergency (ER) | payer SELFPAY ==
--- NOTE | 2019-12-04 16:46 | Event Note ---
ED Screening Note ED Screening Note: vaginal itching dysuria discharge suprapubic discomfort no N/V no fever PMHx HTN, fibroids, anemia did not follow up with a PCP allergy; percocet LNMP: beginning of october This initial assessment/diagnostic orders/clinical plan/treatment(s) is/are subject to change based on patients health status, clinical progression and re- assessment by fellow clinical providers in the ED. Further treatment and workup at subsequent clinical providers discretion. Patient/guardian urged not to elope from the ED as their condition may be serious if not clinically assessed and managed. Initial orders include: ua, urine preg
[2019-12-04 18:57] LABS: Bilirubin,Urine NEG (Negative); Blood,Urine LG (Negative); Color,Urine Amber (Yellow); Mucus,Urine 3+ /HPF; Urobilinogen,Urine < 2.0 mg/dL (<2.0)
[2019-12-04 18:59] LABS: HCG Qualitative,Urine Negative (Negative)
[2019-12-04] MEDS ORDERED: IBUPROFEN 600 MG TAB PO ONE (19:42)
[2019-12-04] MEDS ORDERED: LIDOCAINE-MPF (1%) 10 MG/1 ML VIAL 5 ML INFILTRATI ONE (19:42)
[2019-12-04] MEDS ORDERED: PHENAZOPYRIDINE 200 MG TAB PO ONE (19:42)
[2019-12-04] MEDS ORDERED: LIDOCAINE MPF INFILTRATI ONE (20:00)
[2019-12-04] MEDS ORDERED: AZITHROMYCIN 250 MG TAB PO ONE (22:40)
--- NOTE | 2019-12-05 | Emergency Department Report ---
ED Female HPI - General Chief complaint: Urogenital-Female Stated complaint: VAGINAL PROBLEMS Time Seen by Provider: 12/04/19 16:44 Source: patient Mode of arrival: Ambulatory Limitations: No Limitations - History of Present Illness Initial comments: Patient is a 49-year-old -Omani female with no past medical history who presents to the ED with complaint of acute onset persistent vaginal pain and discomfort, vaginal irritation, vaginal discharge which is thick, yellowish green with malodorous smell, urinary frequency and urgency and dysuria for the last 1 week. Patient admits to having had an unprotected sexual intercourse in the last month, the last episode of which was over 1 week ago. Patient denies abdominal pain, fever, chills, vaginal bleeding, dizziness, chest pain or shortness of breath, low back pain, dyspareunia, diarrhea or nausea and vomiting. MD Complaint: vaginal discharge, dysuria, possible STD, other (vaginal pain and irritation) -: Sudden, week(s) (1) Location: other (VAGINAL) Radiation: non-radiating Severity: severe Severity scale (0 -10): 7 Quality: sharp, burning, aching Consistency: constant Improves with: none Worsens with: urination, intercourse Are you Now?: No Associated Symptoms: denies other symptoms, vaginal discharge, dysuria. denies: vaginal bleeding, abdominal pain, nausea/vomiting, fever/chills, headaches, loss of appetite, hematuria, rash, seizure, shortness of breath, syncope, weakness, other - Related Data Sexually active: Yes Previous Rx's Medication Instructions Recorded Last Taken Type Amoxicillin/Potassium Clav 1 each PO BID #6 tablet 06/03/19 Unknown Rx [Augmentin 875-125 Tablet] Ferrous Sulfate [Feosol 325 MG tab] 325 mg PO BID #60 tablet 06/03/19 Unknown Rx amLODIPine 10 mg PO DAILY #30 tablet 06/03/19 Unknown Rx hydroCHLOROthiazide [HCTZ] 25 mg PO QDAY #30 tablet 06/03/19 Unknown Rx Clindamycin [Clindamycin CAP] 300 mg PO TID #21 capsule 07/16/19 Unknown Rx Ibuprofen [Motrin 800 MG tab] 800 mg PO TID #20 tablet 07/16/19 Unknown Rx Fluconazole [Diflucan TAB] 150 mg PO ONCE #3 tablet 12/05/19 Unknown Rx Ibuprofen [Motrin] 800 mg PO Q8HR PRN #20 tablet 12/05/19 Unknown Rx cephALEXin [Keflex] 500 mg PO Q6HR #40 capsule 12/05/19 Unknown Rx metroNIDAZOLE [Flagyl] 500 mg PO Q12HR #20 tab 12/05/19 Unknown Rx Allergies Allergy/AdvReac Type Severity Reaction Status Date / Time acetaminophen [From Percocet] AdvReac Hives Verified 06/02/19 16:05 oxycodone [From Percocet] AdvReac Hives Verified 06/02/19 16:05 ED Review of Systems ROS: Stated complaint: VAGINAL PROBLEMS Other details as noted in HPI Constitutional: denies: chills, fever Eyes: denies: eye pain, eye discharge, vision change ENT: denies: ear pain, throat pain Respiratory: denies: cough, shortness of breath, wheezing Cardiovascular: denies: chest pain, palpitations Endocrine: no symptoms reported Gastrointestinal: denies: abdominal pain, nausea, diarrhea Genitourinary: urgency, dysuria, frequency, discharge, other (Vaginal pain and irritation) Musculoskeletal: denies: back pain, joint swelling, arthralgia Skin: denies: rash, lesions Neurological: denies: headache, weakness, paresthesias Psychiatric: denies: anxiety, depression Hematological/Lymphatic: denies: easy bleeding, easy bruising ED Past Medical Hx - Past Medical History Previous Medical History?: Yes Hx Hypertension: Yes Additional medical history: anemia - Surgical History Past Surgical History?: No - Social History Smoking Status: Never Smoker Substance Use Type: None - Medications Home Medications: Home Medications Medication Instructions Recorded Confirmed Last Taken Type Amoxicillin/Potassium Clav 1 each PO BID #6 tablet 06/03/19 Unknown Rx [Augmentin 875-125 Tablet] Ferrous Sulfate [Feosol 325 MG tab] 325 mg PO BID #60 tablet 06/03/19 Unknown Rx amLODIPine 10 mg PO DAILY #30 tablet 06/03/19 Unknown Rx hydroCHLOROthiazide [HCTZ] 25 mg PO QDAY #30 tablet 06/03/19 Unknown Rx Clindamycin [Clindamycin CAP] 300 mg PO TID #21 capsule 07/16/19 Unknown Rx Ibuprofen [Motrin 800 MG tab] 800 mg PO TID #20 tablet 07/16/19 Unknown Rx Fluconazole [Diflucan TAB] 150 mg PO ONCE #3 tablet 12/05/19 Unknown Rx Ibuprofen [Motrin] 800 mg PO Q8HR PRN #20 tablet 12/05/19 Unknown Rx cephALEXin [Keflex] 500 mg PO Q6HR #40 capsule 12/05/19 Unknown Rx metroNIDAZOLE [Flagyl] 500 mg PO Q12HR #20 tab 12/05/19 Unknown Rx ED Physical Exam - General Limitations: No Limitations General appearance: alert, in no apparent distress - Head Head exam: Present: atraumatic, normocephalic - Eye Eye exam: Present: normal appearance, PERRL, EOMI Pupils: Present: normal accommodation - ENT ENT exam: Present: normal exam, normal orophraynx, mucous membranes moist, TM's normal bilaterally, normal external ear exam - Neck Neck exam: Present: normal inspection, full ROM. Absent: tenderness - Respiratory Respiratory exam: Present: normal lung sounds bilaterally. Absent: respiratory distress, wheezes, rales, chest wall tenderness, accessory muscle use, prolonged expiratory - Cardiovascular Cardiovascular Exam: Present: regular rate, normal rhythm, normal heart sounds. Absent: systolic murmur, diastolic murmur, rubs, gallop - GI/Abdominal GI/Abdominal exam: Present: soft, normal bowel sounds. Absent: tenderness, guarding, hyperactive bowel sounds - External exam: Present: erythema Speculum exam: Present: erythema, vaginal discharge, cervical discharge Bi-manual exam: Present: other (female RN title i coordinator, Evelia, present during the pelvic exam). Absent: cervical motion tendernes, adnexal tenderness, uterine tenderness - Extremities Exam Extremities exam: Present: normal inspection, full ROM, normal capillary refill - Back Exam Back exam: Present: normal inspection, full ROM. Absent: tenderness, muscle spasm, paraspinal tenderness - Neurological Exam Neurological exam: Present: alert, oriented X3, CN II-XII intact, normal gait, reflexes normal - Psychiatric Psychiatric exam: Present: normal affect, normal mood - Skin Skin exam: Present: warm, dry, intact, normal color. Absent: rash ED Course Vital Signs 12/04/19 12/04/19 16:30 16:45 Temperature 98.5 F 98.5 F Pulse Rate 79 79 Respiratory 18 18 Rate Blood Pressure 213/94 Blood Pressure 213/94 [Right] O2 Sat by Pulse 100 100 Oximetry ED Medical Decision Making - Medical Decision Making This is a 49-year-old female who presented to the ED with vaginal irritation and pain, vaginal discharge, dysuria and urinary frequency and urgency for one week. In the ED, patient is alert and oriented 3 and distention and distress. Urinalysis shows significant urinary tract infection and wet prep shows significant Gardnerella vaginitis and yeast. Patient was treated in the ED empirically for STD exposure and history. The sent home on oral antibiotics for bacterial vaginosis, UTI and Bernadine vaginitis. Patient was advised to rule out her primary care physician or [facility] in 5-7 days for reevaluation. Patient was also advised to return to the ED immediately if symptoms get worse. - Differential Diagnosis Vaginitis; STD; UTI; Bacterial vaginosis; PID Critical care attestation.: If time is entered above; I have spent that time in minutes in the direct care of this critically ill patient, excluding procedure time. ED Disposition Clinical Impression: Acute urinary tract infection, Bacterial vaginal infection, Candidal vaginitis, STD (sexually transmitted disease) Disposition: TO HOME OR SELFCARE Is pt being admited?: No Does the pt Need Aspirin: No Condition: Stable Instructions: Bacterial Vaginosis (ED), Urinary Tract Infection in Women (ED), Vaginitis (ED), Safe Sex (ED), Sexually Transmitted Diseases (ED) Additional Instructions: Take medications with food, drink plenty of fluids and follow up with your primary care physician in 7-10 days for reevaluation. Consider following up and the [facility] for father STD testing. Return to the ED immediately if symptoms get worse. Prescriptions: Fluconazole [Diflucan TAB] 150 mg PO ONCE #3 tablet metroNIDAZOLE [Flagyl] 500 mg PO Q12HR #20 tab cephALEXin [Keflex] 500 mg PO Q6HR #40 capsule Ibuprofen [Motrin] 800 mg PO Q8HR PRN #20 tablet PRN Reason: Pain , Severe (7-10) Referrals: [facility] [Outside] - 7-10 days [facility] [Outside] - 7-10 days Forms: STI Treatment and Prevention Time of Disposition: 00:01 Print Language: GUYANESE
[2019-12-05 00:45] VITALS: BP 198/88
== END 2019-12-05 00:44 | disposition home or self-care (01) ==
LOC: ED 16:13
DX: N39.0 Urinary tract infection, site not specified (principal); B37.3 Candidiasis of vulva and vagina; A63.8 Other specified predominantly sexually transmitted diseases; Z88.6 Allergy status to analgesic agent; I10 Essential (primary) hypertension; Z79.899 Other long term (current) drug therapy
CPT/HCPCS: 81001; 81025; 87210; 87591; 96372; 99284; J0696

== ENCOUNTER 2020-01-15 22:01 | Inpatient (IN) | payer OTHER ==
[2020-01-15 23:03] LABS: HCG Qualitative,Urine Negative (Negative)
[2020-01-15 23:07] LABS: Bilirubin,Urine NEG (Negative); Blood,Urine SM (Negative); Color,Urine Yellow (Yellow); Mucus,Urine FEW /HPF; RBC,Urine < 1.0 /HPF (0.0-6.0)
--- NOTE | 2020-01-15 23:28 | XRay Report ---
CHEST PA AND LATERAL VIEWS INDICATION: PERSISTANT NON PRODUCTIVE COUGH/WEAKNESS. COMPARISON: None. FINDINGS: Support devices: None. Heart: Mildly enlarged Lungs/Pleura: No acute pulmonary or pleural findings. IMPRESSION: 1. No acute findings. Signer Name: Oscar oPol MD Signed: 01/15/2020 11:24 PM Workstation Name: [id number]
[2020-01-15 23:40] LABS: Hematocrit 21.5 % (30.3-42.9); Hemoglobin 6.3 gm/dl (10.1-14.3); Mean Corpuscular HGB Conc 30 % (30-34); Platelet Count 492 K/mm3 (140-440); Red Blood Count 3.69 M/mm3 (3.65-5.03)
[2020-01-15 23:43] LABS: Mean Corpuscular Volume 58 fl (79-97); Red Cell Distribution Width 20.9 % (13.2-15.2)
[2020-01-16] MEDS ORDERED: SODIUM CHLORIDE 0.9% 500 ML 500 ML IV ONE (02:49)
--- NOTE | 2020-01-16 02:57 | Emergency Department Report ---
ED General Adult HPI - General Chief complaint: Weakness Stated complaint: WEAK Time Seen by Provider: 01/16/20 01:20 Source: patient Mode of arrival: Ambulatory Limitations: No Limitations - History of Present Illness Initial comments: 49-year-old F [place] female with no significant past medical history presents emergency department complaining of a 3-week history of progressively worsening dizziness, fatigue now associated with some exertional fatigue and shortness of breath as well. Reports no fever, chills, sweats no chest pain or palpitations no nausea or vomiting no headache or blurred vision. She reports no trauma. No dark tarry stools she reports no hematemesis no hematochezia. Radiation: non-radiation Quality: dull Consistency: constant Improves with: none Worsens with: none Associated Symptoms: denies: confusion, chest pain, cough, diaphoresis, loss of appetite, malaise, nausea/vomiting, rash, shortness of breath, syncope, weakness Treatments Prior to Arrival: none - Related Data Previous Rx's Medication Instructions Recorded Last Taken Type Amoxicillin/Potassium Clav 1 each PO BID #6 tablet 06/03/19 Unknown Rx [Augmentin 875-125 Tablet] Ferrous Sulfate [Feosol 325 MG tab] 325 mg PO BID #60 tablet 06/03/19 Unknown Rx amLODIPine 10 mg PO DAILY #30 tablet 06/03/19 Unknown Rx hydroCHLOROthiazide [HCTZ] 25 mg PO QDAY #30 tablet 06/03/19 Unknown Rx Clindamycin [Clindamycin CAP] 300 mg PO TID #21 capsule 07/16/19 Unknown Rx Ibuprofen [Motrin 800 MG tab] 800 mg PO TID #20 tablet 07/16/19 Unknown Rx Fluconazole [Diflucan TAB] 150 mg PO ONCE #3 tablet 12/05/19 Unknown Rx Ibuprofen [Motrin] 800 mg PO Q8HR PRN #20 tablet 12/05/19 Unknown Rx cephALEXin [Keflex] 500 mg PO Q6HR #40 capsule 12/05/19 Unknown Rx metroNIDAZOLE [Flagyl] 500 mg PO Q12HR #20 tab 12/05/19 Unknown Rx Allergies Allergy/AdvReac Type Severity Reaction Status Date / Time oxycodone [From Percocet] AdvReac Hives Verified 06/02/19 16:05 ED Review of Systems ROS: Stated complaint: WEAK Other details as noted in HPI Comment: All other systems reviewed and negative ED Past Medical Hx - Past Medical History Previous Medical History?: Yes Hx Hypertension: Yes Additional medical history: anemia-HEAVY MENSES, BLOOD TRANSFUSION 2019 - Surgical History Past Surgical History?: Yes 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 - Social History Smoking Status: Never Smoker Substance Use Type: None - Medications Home Medications: Home Medications Medication Instructions Recorded Confirmed Last Taken Type Amoxicillin/Potassium Clav 1 each PO BID #6 tablet 06/03/19 Unknown Rx [Augmentin 875-125 Tablet] Ferrous Sulfate [Feosol 325 MG tab] 325 mg PO BID #60 tablet 06/03/19 Unknown Rx amLODIPine 10 mg PO DAILY #30 tablet 06/03/19 Unknown Rx hydroCHLOROthiazide [HCTZ] 25 mg PO QDAY #30 tablet 06/03/19 Unknown Rx Clindamycin [Clindamycin CAP] 300 mg PO TID #21 capsule 07/16/19 Unknown Rx Ibuprofen [Motrin 800 MG tab] 800 mg PO TID #20 tablet 07/16/19 Unknown Rx Fluconazole [Diflucan TAB] 150 mg PO ONCE #3 tablet 12/05/19 Unknown Rx Ibuprofen [Motrin] 800 mg PO Q8HR PRN #20 tablet 12/05/19 Unknown Rx cephALEXin [Keflex] 500 mg PO Q6HR #40 capsule 12/05/19 Unknown Rx metroNIDAZOLE [Flagyl] 500 mg PO Q12HR #20 tab 12/05/19 Unknown Rx ED Physical Exam - General Limitations: No Limitations General appearance: alert, in no apparent distress - Head Head exam: Present: atraumatic, normocephalic - Eye Eye exam: Present: normal appearance - ENT ENT exam: Present: mucous membranes moist - Neck Neck exam: Present: normal inspection - Respiratory Respiratory exam: Present: normal lung sounds bilaterally. Absent: respiratory distress - Cardiovascular Cardiovascular Exam: Present: regular rate, normal rhythm. Absent: systolic murmur, diastolic murmur, rubs, gallop - GI/Abdominal GI/Abdominal exam: Present: soft, normal bowel sounds - Rectal Rectal exam: Present: heme (-) stool - Extremities Exam Extremities exam: Present: normal inspection - Back Exam Back exam: Present: normal inspection - Neurological Exam Neurological exam: Present: alert, oriented X3 - Psychiatric Psychiatric exam: Present: normal affect, normal mood - Skin Skin exam: Present: warm, dry, intact, normal color. Absent: rash ED Course Vital Signs 01/15/20 01/15/20 22:05 22:33 Temperature 99.2 F 99.2 F Pulse Rate 84 84 Respiratory 18 18 Rate Blood Pressure 199/77 149/77 O2 Sat by Pulse 100 100 Oximetry ED Medical Decision Making - Lab Data Result diagrams: 01/15/20 23:04 01/15/20 23:04 Critical care attestation.: If time is entered above; I have spent that time in minutes in the direct care of this critically ill patient, excluding procedure time. ED Disposition Clinical Impression: Symptomatic anemia Disposition: DC-09 OP ADMIT IP TO THIS HOSP Is pt being admited?: Yes Does the pt Need Aspirin: No Condition: Stable Referrals: PRIMARY CARE, [Primary Care Provider] - 3-5 Days
--- NOTE | 2020-01-16 03:23 | History and Physical Report ---
History of Present Illness Date of examination: 01/16/20 Date of admission: 01/16/20 Chief complaint: Generalized weakness History of present illness: Patient is a 48-year-old female with hypertension, anemia and uterine fibroids who presents to ER with complaints of generalized weakness and fatigue x3 weeks. Patient states progressive weakness over the past 3 days accompanied with decreased exercise tolerance, nausea and dizziness. Patient states she recently had flu flulike symptoms, and still persist with a dry hacking cough. Pt seen and evaluated in ED and found to have symptomatic anemia, Pt denies CP, Palpitations, Abdominal pain. Past History Past Medical History: anemia, hypertension Past Surgical History: Other Social history: lives with family Family history: hypertension Medications and Allergies Allergies Allergy/AdvReac Type Severity Reaction Status Date / Time oxycodone [From Percocet] AdvReac Hives Verified 06/02/19 16:05 Home Medications Medication Instructions Recorded Confirmed Last Taken Type Ferrous Sulfate [Feosol 325 MG tab] 325 mg PO BID #60 tablet 06/03/19 01/16/20 Unknown Rx hydroCHLOROthiazide [HCTZ] 25 mg PO QDAY #30 tablet 06/03/19 01/16/20 Unknown Rx Amlodipine Besylate [Norvasc] 10 mg PO DAILY 01/16/20 01/16/20 Unknown History Review of Systems All systems: negative Constitutional: fatigue, weakness Cardiovascular: decreased exercise tolerance Respiratory: cough Menstruation: period heavy, menses 1-7 days Neurological: headaches Exam - Physical Exam Narrative exam: - Physical Exam Narrative exam: General appearance: Present: No distress noted - EENT Eyes: Present: PERRL ENT: hearing intact, clear oral mucosa - Neck Neck: Present: supple, normal ROM - Respiratory Respiratory effort: normal Respiratory: bilateral: Clear to auscultation - Cardiovascular Heart Sounds: Present: S1 & S2. Absent: rub, click - Extremities Extremities: pulses symmetrical, No edema Peripheral Pulses: within normal limits - Abdominal General gastrointestinal: Present: , non-distended, normal bowel sounds genitourinary: Present: normal - Integumentary Integumentary: Present: clear, warm, dry - Musculoskeletal Musculoskeletal: gait normal, strength equal bilaterally - Psychiatric Psychiatric: appropriate mood/affect, intact judgment & insight - Neurologic Neurologic: CNII-XII intact, moves all extremities - Constitutional Vitals: Temp Pulse Resp BP Pulse Ox 99.2 F 84 18 149/77 100 01/15/20 22:33 01/15/20 22:33 01/15/20 22:33 01/15/20 22:33 01/15/20 22:33 Results - Labs CBC & Chem 7: 01/15/20 23:04 01/15/20 23:04 Labs: Laboratory Last Values WBC 5.1 K/mm3 (4.5-11.0) 01/15/20 23:04 RBC 3.69 M/mm3 (3.65-5.03) 01/15/20 23:04 Hgb 6.3 gm/dl (10.1-14.3) L 01/15/20 23:04 Hct 21.5 % (30.3-42.9) L 01/15/20 23:04 MCV 58 fl (79-97) L 01/15/20 23:04 MCH 17 pg (28-32) L 01/15/20 23:04 MCHC 30 % (30-34) 01/15/20 23:04 RDW 20.9 % (13.2-15.2) H 01/15/20 23:04 Plt Count 492 K/mm3 (140-440) H 01/15/20 23:04 Sodium 138 mmol/L (137-145) 01/15/20 23:04 Potassium 3.9 mmol/L (3.6-5.0) 01/15/20 23:04 Chloride 100.4 mmol/L (98-107) 01/15/20 23:04 Carbon Dioxide 23 mmol/L (22-30) 01/15/20 23:04 Anion Gap 19 mmol/L 01/15/20 23:04 BUN 10 mg/dL (7-17) 01/15/20 23:04 Creatinine 1.0 mg/dL (0.7-1.2) 01/15/20 23:04 Estimated GFR 59 ml/min 01/15/20 23:04 BUN/Creatinine Ratio 10 % 01/15/20 23:04 Glucose 103 mg/dL (65-100) H 01/15/20 23:04 Calcium 9.0 mg/dL (8.4-10.2) 01/15/20 23:04 Urine Color Yellow (Yellow) 01/15/20 22:53 Urine Turbidity Slightly-cloudy (Clear) 02/23/20 22:53 Urine pH 6.0 (5.0-7.0) 01/15/20 22:53 Ur Specific [place] 1.017 (1.003-1.030) 01/15/20 22:53 Urine Protein 30 mg/dl mg/dL (Negative) 01/15/20 22:53 Urine Glucose (UA) Neg mg/dL (Negative) 01/15/20 22:53 Urine Ketones Neg mg/dL (Negative) 01/15/20 22:53 Urine Blood Sm (Negative) 01/15/20 22:53 Urine Nitrite Neg (Negative) 01/15/20 22:53 Ur Reducing Substances Not Reportable 01/15/20 22:53 Urine Bilirubin Neg (Negative) 01/15/20 22:53 Urine Ictotest Not Reportable 01/15/20 22:53 Urine Urobilinogen 4.0 mg/dL (<2.0) 01/15/20 22:53 Ur Leukocyte Esterase Tr (Negative) 01/15/20 22:53 Urine WBC (Auto) 8.0 /HPF (0.0-6.0) H 01/15/20 22:53 Urine RBC (Auto) < 1.0 /HPF (0.0-6.0) 01/15/20 22:53 U Epithel Cells (Auto) 7.0 /HPF (0-13.0) 01/15/20 22:53 Urine Mucus Few /HPF 01/15/20 22:53 Urine HCG, Qual Negative (Negative) 01/15/20 22:53 - Imaging and Cardiology Chest x-ray: report reviewed (No acute findings ) Assessment and Plan Advance Directives: No VTE prophylaxis?: Mechanical Plan of care discussed with patient/family: Yes - Patient Problems (1) Symptomatic anemia Current Visit: Yes Status: Acute Plan to address problem: -moderate anemia, -Hb: 6.3g/dl , -1 unit ordered to be transfused (2) Fibroids Current Visit: No Status: Acute Plan to address problem: Patient states upcoming [employer] F/U care outpatient on (3) Hypertension Current Visit: No Status: Acute Plan to address problem: Home meds once reconciled, -Monitor BP q shift, PRN antihypertensive as needed (4) DVT prophylaxis Current Visit: No Status: Acute Plan to address problem: SCDs bilaterally
[2020-01-16] MEDS ORDERED: hydrALAZINE 20 MG/1 ML INJ IV PRN (03:31)
[2020-01-16] MEDS ORDERED: ACETAMINOPHEN 325 MG TAB PO PRN (03:33)
[2020-01-16] MEDS ORDERED: ONDANSETRON 4 MG/2 ML INJ IV PRN (03:33)
[2020-01-16] MEDS ORDERED: SODIUM CHLORIDE 0.9% 1000 ML 1,000 ML IV SCH (03:45)
[2020-01-16] MEDS ORDERED: FERROUS SULFATE 325 MG TAB PO SCH (10:00)
[2020-01-16] MEDS ORDERED: PANTOPRAZOLE 40 MG TAB PO SCH (10:00)
[2020-01-16] MEDS ORDERED: hydroCHLOROthiazide 25 MG TAB PO SCH (10:00)
[2020-01-16] MEDS ORDERED: amLODIPine 10 MG TAB PO SCH (10:00)
[2020-01-16] MEDS ORDERED: amLODIPine 5 MG TAB PO SCH (10:00)
[2020-01-16] MEDS ORDERED: PANTOPRAZOLE 40 MG INJ IV SCH (10:00)
[2020-01-16] MEDS ORDERED: SODIUM CHLORIDE 0.9% 500 ML 500 ML ONE (13:06)
[2020-01-16 13:45] VITALS: BP 174/79
--- NOTE | 2020-01-16 17:53 | Event Note ---
49-year-old woman with history of fibroid and heavy menses. Presents with weakness, found to have anemia. She received transfusion. Patient is advised to continue her iron supplements at home. She has an appointment with [facility] in 3 days, she was advised to maintain this appointment Diagnosis Chronic blood loss anemia Menorrhagia Fibroid uterus Iron deficiency
== END 2020-01-16 17:46 | disposition home or self-care (01) | DRG 812 ==
LOC: ED 22:01 → 3A 01-16 04:15
PROVIDERS: ADMIT Internal Medicine Geriatric Medicine; ATTEND Internal Medicine
PROC: 30233N1 Transfusion of Nonautologous Red Blood Cells into Peripheral Vein, Percutaneous Approach (ICD-10-PCS; principal; 2020-01-16)
DX: D50.0 Iron deficiency anemia secondary to blood loss (chronic) (principal); I10 Essential (primary) hypertension; D25.9 Leiomyoma of uterus, unspecified; N94.89 Other specified conditions associated with female genital organs and menstrual cycle; N92.0 Excessive and frequent menstruation with regular cycle; Z88.5 Allergy status to narcotic agent; Z82.49 Family history of ischemic heart disease and other diseases of the circulatory system
CPT/HCPCS: 36415; 71046; 80048; 81001; 81025; 82271; 85027; 86850; 86900; 86901; 86920; G0378; J0360; J7030; J7040; P9016

== ENCOUNTER 2020-09-02 12:31 | Emergency (ER) | payer SELFPAY ==
[2020-09-02 12:48] VITALS: BP 205/93
--- NOTE | 2020-09-02 12:51 | Emergency Department Report ---
ED Upper Extremity Inj HPI - General Chief Complaint: Extremity Injury, Upper Stated Complaint: LFT WRIST PAIN Time Seen by Provider: 09/02/20 12:45 Source: patient Mode of arrival: Ambulatory Limitations: No Limitations - History of Present Illness Initial Comments: This is a [id number] female nontoxic, well nourished in appearance, no acute signs of distress presents to the ED with c/o of left wrist pain x 1 day. Stated has been having lifting. Patient denies any trauma or injuries. Denies decreased ROM, joint swelling, redness, or abnormal gait. Denies any fever, chills, nausea, vomiting, headache, stiff neck, chest pain or shortness of breath. Patient denies any numbness or tingling. Stated allergies to oxycodone. Stated HX of HTN but does not take medications for this. MD Complaint: Injury to:: left, wrist -: days(s) (1) Other Extremity Injury: Wrist: Left Severity scale (0 -10): 8 Improves With: immobilization Worsens With: movement of extremity Associated Symptoms: denies other symptoms. denies: weakness, numbness, neck pain, suspects foreign body, nausea/vomiting, heard/felt popping sensat - Related Data Home Medications Medication Instructions Recorded Confirmed Last Taken Amlodipine Besylate [Norvasc] 10 mg PO DAILY 01/16/20 01/16/20 Unknown Previous Rx's Medication Instructions Recorded Last Taken Type Ferrous Sulfate [Feosol 325 MG tab] 325 mg PO BID #60 tablet 06/03/19 Unknown Rx hydroCHLOROthiazide [HCTZ] 25 mg PO QDAY #30 tablet 06/03/19 Unknown Rx Naproxen 500 mg PO Q12H PRN #12 tablet 09/02/20 Unknown Rx Allergies Allergy/AdvReac Type Severity Reaction Status Date / Time oxycodone [From Percocet] AdvReac Hives Verified 06/02/19 16:05 ED Review of Systems ROS: Stated complaint: LFT WRIST PAIN Other details as noted in HPI Constitutional: denies: chills, fever Eyes: denies: eye pain, eye discharge, vision change ENT: denies: ear pain, throat pain Respiratory: denies: cough, shortness of breath, wheezing Cardiovascular: denies: chest pain, palpitations Endocrine: no symptoms reported Gastrointestinal: denies: abdominal pain, nausea, diarrhea Genitourinary: denies: urgency, dysuria, discharge Musculoskeletal: denies: back pain, joint swelling, arthralgia Skin: denies: rash, lesions Neurological: denies: headache, weakness, paresthesias Psychiatric: denies: anxiety, depression Hematological/Lymphatic: denies: easy bleeding, easy bruising ED Past Medical Hx - Past Medical History Hx Hypertension: Yes Additional medical history: anemia-HEAVY MENSES, BLOOD TRANSFUSION 2019 - Surgical History 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 - Social History Smoking Status: Never Smoker - Medications Home Medications: Home Medications Medication Instructions Recorded Confirmed Last Taken Type Ferrous Sulfate [Feosol 325 MG tab] 325 mg PO BID #60 tablet 06/03/19 01/16/20 Unknown Rx hydroCHLOROthiazide [HCTZ] 25 mg PO QDAY #30 tablet 06/03/19 01/16/20 Unknown Rx Amlodipine Besylate [Norvasc] 10 mg PO DAILY 01/16/20 01/16/20 Unknown History Naproxen 500 mg PO Q12H PRN #12 tablet 09/02/20 Unknown Rx ED Physical Exam - General Limitations: No Limitations General appearance: alert, in no apparent distress - Head Head exam: Present: atraumatic, normocephalic - Neck Neck exam: Present: normal inspection, full ROM - Respiratory Respiratory exam: Absent: respiratory distress - Cardiovascular Cardiovascular Exam: Present: regular rate - Extremities Exam Extremities exam: Present: normal inspection, full ROM, tenderness, normal capillary refill. Absent: joint swelling - Expanded Upper Extremity Exam Left General: Present: normal inspection Shoulder Exam: Present: normal inspection, full ROM. Absent: tenderness, swelling Upper Arm exam: Present: normal inspection, full ROM. Absent: tenderness, swelling Elbow exam: Present: normal inspection, full ROM. Absent: tenderness, swelling Forearm Wrist exam: Present: normal inspection, full ROM. Absent: tenderness, swelling Hand Wrist exam: Present: normal inspection, full ROM, tenderness. Absent: swelling, abrasion, laceration, ecchymosis, deformity, crepidus, dislocation, erythema, amputation, nail avulsion, subungual hematoma Vascular: Present: normal capillary refill. Absent: vascular compromise (no vasular compromise) - Back Exam Back exam: Present: normal inspection, full ROM - Neurological Exam Neurological exam: Present: alert, oriented X3, normal gait - Psychiatric Psychiatric exam: Present: normal affect, normal mood - Skin Skin exam: Present: warm, dry, intact, normal color. Absent: rash ED Course Vital Signs 09/02/20 12:47 Temperature 99.1 F Pulse Rate 85 Respiratory 18 Rate Blood Pressure 205/93 O2 Sat by Pulse 97 Oximetry Vital Signs 09/02/20 12:47 Temperature 99.1 F Pulse Rate 85 Respiratory 18 Rate Blood Pressure 205/93 O2 Sat by Pulse 97 Oximetry - Reevaluation(s) Reevaluation #1: 09/02/20 12:49 Patient is speaking in full sentences with no signs of distress noted. ED Medical Decision Making - Radiology Data Referring Physician: PORFIRIO ESPINOSA Patient Name: BRITTANY LINARES Date of : 1970 Sex: Female Report Date: 2020-09-02 Report Status: [place] [address] XRay Report Signed Patient: BRITTANY LINARES MR#: [id number] : 1970 Acct:[id number] Age/Sex: 49 / F ADM Date: 09/02/20 Loc: ED Attending Dr: Ordering Physician: PORFIRIO ESPINOSA NP Date of Service: 09/02/20 Procedure(s): XR wrist 3+V LT Accession Number(s): [id number] cc: PORFIRIO ESPINOSA NP Fluoro Time In Minutes: Left wrist 3 views INDICATION: Left wrist pain. IMPRESSION: No fracture or subluxation of the left wrist is identified. Signer Name: Stef Monteiro MD Signed: 09/02/2020 1:14 PM Workstation Name: [id number] Transcribed By: BC Dictated By: Stef Monteiro MD Electronically Authenticated By: Stef Monteiro MD Signed Date/Time: 09/02/20 1314 DD/ 1313 TD/TT: - Medical Decision Making This is a 49-year-old female that presents with left wrist strain and HTN. Patient is stable and was examined by me. Patient is notified of the xray results with no questions noted by the patient. Educated on HTN and to take a daily blood pressure readings and to see PCP in 2 days for this. No joint effusion, no redness, no decreased ROM. Normal gait. Patient was instructed to Follow-up with a orthopedic doctor in 3-5 days or if symptoms worsen and continue return to emergency room as soon as possible. At time of discharge, the patient does not seem toxic or ill in appearance. No acute signs of distress noted. Patient agrees to discharge treatment plan of care. No further questions noted by the patient. According to ACEP HTN guidelines, In ED patients with asymptomatic markedly elevated blood pressure, routine screening for acute target organ injury (eg, serum creatinine, urinalysis, ECG) is not required; In patients with asymptomatic markedly elevated blood pressure, routine ED medical intervention is not required. Critical care attestation.: If time is entered above; I have spent that time in minutes in the direct care of this critically ill patient, excluding procedure time. ED Disposition Clinical Impression: Hypertension Qualifiers: Hypertension type: unspecified Qualified Code(s): I10 - Essential (primary) hypertension Strain of left wrist Qualifiers: Encounter type: initial encounter Qualified Code(s): S66.912A - Strain of unspecified muscle, fascia and tendon at wrist and hand level, left hand, initial encounter Disposition: TO HOME OR SELFCARE Is pt being admited?: No Does the pt Need Aspirin: No Condition: Stable Instructions: Hypertension (ED), RICE Therapy (ED), Wrist Injury (ED) Additional Instructions: Follow-up with a primary care and orthopedic doctor in 3-5 days or if symptoms worsen and continue return to the emergency department as soon as possible. No physical activity until cleared by orthopedic. Prescriptions: Naproxen 500 mg PO Q12H PRN #12 tablet PRN Reason: Pain , Severe (7-10) Referrals: PRIMARY MD WING [Primary Care Provider] - 3-5 Days AUGUSTINE NARAYANAN MD [Staff Physician] - 3-5 Days STEVO PRICE MD [Staff Physician] - 3-5 Days Forms: Work/School Release Form(ED)
--- NOTE | 2020-09-02 13:19 | XRay Report ---
Left wrist 3 views INDICATION: Left wrist pain. IMPRESSION: No fracture or subluxation of the left wrist is identified. Signer Name: Stef Monteiro MD Signed: 09/02/2020 1:14 PM Workstation Name: [id number]
== END 2020-09-02 13:44 | disposition home or self-care (01) ==
LOC: ED 12:31
DX: S66.912A Strain of unspecified muscle, fascia and tendon at wrist and hand level, left hand, initial encounter (principal); I10 Essential (primary) hypertension; Z88.6 Allergy status to analgesic agent; X58.XXXA Exposure to other specified factors, initial encounter; Y93.89 Activity, other specified; Y92.89 Other specified places as the place of occurrence of the external cause; Y99.8 Other external cause status
CPT/HCPCS: 99283

== ENCOUNTER 2022-01-08 17:57 | Emergency (ER) | payer SELFPAY | END 2022-01-08 19:18 | disposition left against medical advice (07) | LOC: ED 17:57 | DX: R22.41 Localized swelling, mass and lump, right lower limb (principal); Z53.21 Procedure and treatment not carried out due to patient leaving prior to being seen by health care provider ==

== ENCOUNTER 2022-01-12 11:40 | Emergency (ER) | payer SELFPAY ==
--- NOTE | 2022-01-12 15:07 | Emergency Department Report ---
ED Lower Extremity HPI - General Chief Complaint: Extremity Problem,Nontraumatic Stated Complaint: KNEE SWELLING Source: patient Mode of arrival: Ambulatory Limitations: No Limitations - History of Present Illness Initial Comments: 51-year-old female presents to the ED complaining of right knee pain x4 days. Patient states that he is unable to bear weight without any pain to her right knee. Patient denies any trauma. Patient states that she has some swelling. No obvious deformity. no distracting injury noted. Patient is able to bear weight. She states that it is painful to ambulate. States pain is a 5 out of 6. She taking Goody powder prior to arrival. States that she has been taking Goody powder with relief. Patient has a history of hypertension. Injury: Knee: Right Severity scale (0 -10): 5 Worsens With: movement Associated Symptoms: swelling Treatments Prior to Arrival: other (Goody powder) - Related Data Home Medications Medication Instructions Recorded Confirmed Last Taken Amlodipine Besylate [Norvasc] 10 mg PO DAILY 01/16/20 01/16/20 Unknown Previous Rx's Medication Instructions Recorded Last Taken Type Ferrous Sulfate [Feosol 325 MG tab] 325 mg PO BID #60 tablet 06/03/19 Unknown Rx hydroCHLOROthiazide [HCTZ] 25 mg PO QDAY #30 tablet 06/03/19 Unknown Rx Naproxen 500 mg PO Q12H PRN #12 tablet 09/02/20 Unknown Rx Ibuprofen [Motrin] 800 mg PO Q8HR PRN 15 Days #30 01/12/22 Unknown Rx tablet Allergies Allergy/AdvReac Type Severity Reaction Status Date / Time oxycodone [From Percocet] AdvReac Hives Verified 01/12/22 12:13 ED Review of Systems ROS: Stated complaint: KNEE SWELLING Other details as noted in HPI Constitutional: denies: chills, fever Eyes: denies: eye pain, eye discharge, vision change ENT: denies: ear pain, throat pain Respiratory: denies: cough, shortness of breath, wheezing Cardiovascular: denies: chest pain, palpitations Endocrine: no symptoms reported Gastrointestinal: denies: abdominal pain, nausea, diarrhea Genitourinary: denies: urgency, dysuria, discharge Musculoskeletal: denies: back pain, joint swelling, arthralgia Skin: denies: rash, lesions Neurological: denies: headache, weakness, paresthesias Psychiatric: denies: anxiety, depression Hematological/Lymphatic: denies: easy bleeding, easy bruising ED Past Medical Hx - Past Medical History Hx Hypertension: Yes Additional medical history: anemia-HEAVY MENSES, BLOOD TRANSFUSION 2019 - Surgical History 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 - Social History Smoking Status: Never Smoker - Medications Home Medications: Home Medications Medication Instructions Recorded Confirmed Last Taken Type Ferrous Sulfate [Feosol 325 MG tab] 325 mg PO BID #60 tablet 06/03/19 01/16/20 Unknown Rx hydroCHLOROthiazide [HCTZ] 25 mg PO QDAY #30 tablet 06/03/19 01/16/20 Unknown Rx Amlodipine Besylate [Norvasc] 10 mg PO DAILY 01/16/20 01/16/20 Unknown History Naproxen 500 mg PO Q12H PRN #12 tablet 09/02/20 Unknown Rx Ibuprofen [Motrin] 800 mg PO Q8HR PRN 15 Days #30 01/12/22 Unknown Rx tablet ED Physical Exam - General Limitations: No Limitations General appearance: alert, in no apparent distress - Head Head exam: Present: atraumatic, normocephalic - Eye Eye exam: Present: normal appearance - ENT ENT exam: Present: mucous membranes moist - Neck Neck exam: Present: normal inspection - Respiratory Respiratory exam: Present: normal lung sounds bilaterally. Absent: respiratory distress - Cardiovascular Cardiovascular Exam: Present: regular rate, normal rhythm. Absent: systolic murmur, diastolic murmur, rubs, gallop - GI/Abdominal GI/Abdominal exam: Present: soft, normal bowel sounds - Extremities Exam Extremities exam: Present: normal inspection - Expanded Lower Extremity Exam Right Knee exam: Present: normal inspection, full ROM, tenderness. Absent: abrasion, laceration, dislocation, erythema - Back Exam Back exam: Present: normal inspection - Neurological Exam Neurological exam: Present: alert, oriented X3 - Psychiatric Psychiatric exam: Present: normal affect, normal mood - Skin Skin exam: Present: warm, dry, intact, normal color. Absent: rash ED Course Vital Signs 01/12/22 12:11 Temperature 98.8 F Pulse Rate 57 L Respiratory 18 Rate Blood Pressure 146/61 [Left] O2 Sat by Pulse 100 Oximetry ED Lower Extremity MDM - Radiology Data [facility] [address] [place] [address] XRay Report Signed Patient: BRITTANY LINARES MR#: [id number] : 1970 Acct:[id number] Age/Sex: 51 / F ADM Date: 01/12/22 Loc: ED Attending Dr: Ordering Physician: FRANKIE FIGUEROA Date of Service: 01/12/22 Procedure(s): XR knee 3V RT Accession Number(s): [id number] cc: FRANKIE FIGUEROA Fluoro Time In Minutes: RIGHT KNEE 3 VIEW(S) INDICATION / CLINICAL INFORMATION: right knee pain COMPARISON: None available. FINDINGS: BONES / JOINT(S): No acute fracture or subluxation. Moderate degenerative arthrosis medial femoral tibial compartment and mild degenerative arthrosis patellofemoral compartment. Moderate joint effusion. SOFT TISSUES: No significant abnormality. ADDITIONAL FINDINGS: None. Signer Name: Blake Solares MD Signed: 01/12/2022 3:22 PM Workstation Name: [id number] Transcribed By: TL Dictated By: Blake Solares MD Electronically Authenticated By: Blake Solares MD Signed Date/Time: 01/12/221521 DD/ 21 TD/TT: - Medical Decision Making 51-year-old female presents to the ED complaining of right knee pain x4 days. Patient states that he is unable to bear weight without any pain to her right knee. Patient denies any trauma. Patient states that she has some swelling. No obvious deformity. no distracting injury noted. Patient is able to bear weight. She states that it is painful to ambulate. States pain is a 5 out of 6. She taking Goody powder prior to arrival. States that she has been taking Goody powder with relief. Patient has a history of hypertension. Physical examination unremarkable. Knee x-ray showed moderate joint effusion . No fracture or subluxation noted. Rechecked the patient is resting quietly quietly and comfortable and feeling better. I discussed the results of diagnostic study, my clinical impression and the plan for further treatment with the patient. Patient agrees with plan and discharge at this present time. All question addressed. I have given the patient instruction regarding a diagnosis ,expectation ,follow- up and return precaution. I explained to the patient that emergent condition may arise and to return to the ED for new worsen and any new persisting condition. I have explained the importance of following up with the primary care physician or referral physician listed below has instructed. The patient verbalized understanding of discharge instruction. - Differential Diagnosis Arthritis, bursitis, right knee pain Critical care attestation.: If time is entered above; I have spent that time in minutes in the direct care of this critically ill patient, excluding procedure time. ED Disposition Clinical Impression: Right knee pain Qualifiers: Chronicity: acute Qualified Code(s): M25.561 - Pain in right knee Joint effusion of knee Qualifiers: Laterality: right Qualified Code(s): M25.461 - Effusion, right knee Disposition: HOME / SELF CARE / HOMELESS Is pt being admited?: No Does the pt Need Aspirin: No Condition: Stable Instructions: How to Use Cold Therapy, [id number], Knee Effusion, [id number], Acute Knee Pain, Adult Additional Instructions: Take medication as prescribed Return to ED for any worsening symptom Prescriptions: Ibuprofen [Motrin] 800 mg PO Q8HR PRN 15 Days #30 tablet PRN Reason: Pain, Moderate (4-6) Referrals: PRIMARY CAREMD [Primary Care Provider] - 3-5 Days STEVO PRICE MD [Staff Physician] - 3-5 Days Forms: Work/School Release Form(ED)
--- NOTE | 2022-01-12 15:27 | XRay Report ---
RIGHT KNEE 3 VIEW(S) INDICATION / CLINICAL INFORMATION: right knee pain COMPARISON: None available. FINDINGS: BONES / JOINT(S): No acute fracture or subluxation. Moderate degenerative arthrosis medial femoral ti bial compartment and mild degenerative arthrosis patellofemoral compartment. Moderate joint effusion. SOFT TISSUES: No significant abnormality. ADDITIONAL FINDINGS: None. Signer Name: Blake Solares MD Signed: 01/12/2022 3:22 PM Workstation Name: [id number]
[2022-01-12 15:59] VITALS: BP 149/78
== END 2022-01-12 15:59 | disposition home or self-care (01) ==
LOC: ED 11:40
DX: M25.561 Pain in right knee (principal); M25.461 Effusion, right knee; I10 Essential (primary) hypertension; Z88.5 Allergy status to narcotic agent; Z79.899 Other long term (current) drug therapy
CPT/HCPCS: 99283

== ENCOUNTER 2022-06-19 08:32 | Emergency (ER) | payer SELFPAY ==
--- NOTE | 2022-06-19 10:20 | Emergency Department Report ---
Upper Extremity - HPI Chief Complaint: Extremity Injury, Upper Stated Complaint: RT ELBOW PAIN Time Seen by Provider: 06/19/22 09:33 Upper Extremity: Left Elbow Occurred When: 3 Days Severity: moderate Symptoms: Yes Pain with Movement, Yes Limited Range of Movement, Yes Swelling ED Review of Systems ROS: Stated complaint: RT ELBOW PAIN Other details as noted in HPI Constitutional: no symptoms reported Eyes: as per HPI ENT: as per HPI Respiratory: no symptoms reported Cardiovascular: as per HPI Gastrointestinal: as per HPI. 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 - Social History Smoking Status: Never Smoker - Medications Home Medications: Home Medications Medication Instructions Recorded Confirmed Last Taken Type Ferrous Sulfate [Feosol 325 MG tab] 325 mg PO BID #60 tablet 06/03/19 01/16/20 Unknown Rx hydroCHLOROthiazide [HCTZ] 25 mg PO QDAY #30 tablet 06/03/19 01/16/20 Unknown Rx Amlodipine Besylate [Norvasc] 10 mg PO DAILY 01/16/20 01/16/20 Unknown History Ibuprofen [Motrin] 800 mg PO Q8HR PRN 15 Days #30 01/12/22 Unknown Rx tablet Acetaminophen/Codeine [Tylenol 1 tab PO Q6H PRN #12 tab 06/19/22 Unknown Rx /Codeine # 3 tab] Naproxen 500 mg PO Q12H PRN #12 tablet 06/19/22 Unknown Rx Upper Extremity Exam - Exam General: Vital signs noted. No distress. Alert and acting appropriately. Head and Torso: No HEENT Abnormality Shoulder Exam: No Shoulder Tenderness Arm Exam: No Arm/Humerus Tenderness Elbow: Yes Elbow Tenderness, No Normal Range of Motion in Elbow, No Elbow Deformity Forearm: No Forearm Tenderness, No Forearm Deformity Wrist: No Wrist Tenderness, No Normal ROM in Wrist Hand: No Hand Tenderness, No Hand Deformity ED Course Vital Signs 06/19/22 08:38 Temperature 98.4 F Pulse Rate 71 Respiratory 18 Rate Blood Pressure 156/70 O2 Sat by Pulse 97 Oximetry ED Medical Decision Making - Radiology Data Radiology results: report reviewed No acute findings no fractures dislocations or effusions - Medical Decision Making 51-year-old with atraumatic pain in her right elbow, pain does not radiate to the upper extremities of the chest, limited ROM, with some mild swelling, no warmth or erythema. Differential diagnosis includes bursitis, effusion, arthritis, septic joint, vital signs are stable x-rays reassuring no acute findings no subluxations no dislocation no fractures. Will discharge home with supportive therapy including sling, RICE therapy, orthopedic follow-up. And activity modification. I discussed all of this with patient including plans for follow-up with understanding. Critical care attestation.: If time is entered above; I have spent that time in minutes in the direct care of this critically ill patient, excluding procedure time. ED Disposition Clinical Impression: Elbow pain, right, Arthralgia of elbow, right Disposition: 01 HOME / SELF CARE / HOMELESS Is pt being admited?: No Does the pt Need Aspirin: No Condition: Stable Instructions: Joint Pain, [id number] Prescriptions: Naproxen 500 mg PO Q12H PRN #12 tablet PRN Reason: Pain , Severe (7-10) Acetaminophen/Codeine [Tylenol /Codeine # 3 tab] 1 tab PO Q6H PRN #12 tab PRN Reason: Pain , Severe (7-10) Referrals: STEVO PRICE MD [Staff Physician] - 3-5 Days
[2022-06-19] MEDS ORDERED: IBUPROFEN 800 MG TAB PO ONE (10:21)
[2022-06-19] MEDS ORDERED: HYDROcodone/ACETAMINOPHEN 5-325 MG TAB PO ONE (10:21)
--- NOTE | 2022-06-19 11:02 | XRay Report ---
RIGHT ELBOW 3 VIEWS INDICATION / CLINICAL INFORMATION: Right elbow pain and swelling. COMPARISON: None available. FINDINGS: BONES and JOINT(S): No acute fracture or subluxation. No significant arthritis. SOFT TISSUES: No significant abnormality. ADDITIONAL FINDINGS: None. IMPRESSION: 1. No acute findings. Signer Name: Elio Vicente MD Signed: 06/19/2022 10:57 AM Workstation Name: [id number]
[2022-06-19 13:56] VITALS: BP 143/89
== END 2022-06-19 13:56 | disposition home or self-care (01) ==
LOC: ED 08:32
DX: M25.521 Pain in right elbow (principal); I10 Essential (primary) hypertension
CPT/HCPCS: 99283